=== PATIENT | female | born 1975 | race Two or more races ===

== ENCOUNTER 2023-04-05 01:51 | Emergency (ER) | payer OTHER, SELFPAY ==
[2023-04-05 02:00] VITALS: BP 139/94; PULSE 110; RESP 20; O2SAT 99; BMI 29.2
[2023-04-05] MEDS: Diphth,Pertus(ACell),Tet Adult 0.5 ML SYRINGE IM (02:29)
--- OUTSIDE RECORDS SUMMARY | 2023-04-05 02:29 | XMS_ITS | Continuity of Care Document ---
Author Name Unknown Organization [facility] Address [address] [place] [address]- Care Team Providers Care Lead Generator Name Role Phone Wicho Still NP Primary Care Physician Encounter [facility] Date(s): 10/14/22 - 11/13/22 [facility]/[place] [address]- [place] Allergies, Adverse Reactions, Alerts Substance Reaction Severity Status Latex Hives Active Immunizations Given and Recorded Vaccine Date Status Refusal Reason Hepatitis A-Hepatitis B Vaccine 01/07/21 Given Hepatitis A-Hepatitis B Vaccine 12/07/20 Given Measles/Mumps/Rubella Virus Vaccine 12/07/20 Given influenza virus vaccine, inactivated 1 09/10/16 Gi jae influenza virus vaccine, inactivated 2 10/23/15 Gi jae influenza virus vaccine, inactivated 3 09/15/11 Gi jae tetanus/diphtheria/pertussis, acel(Tdap) 4 01/26/13 Given 1Result Comment: [09/10/2016] ORDERED BY DR. ROUSSEAU 2Result Comment: [10/23/2015] ORDERED BY DR. LANDAVERDE 3Admin Note: VIS 06/17/2011GIVEN 4Admin Note: [facility] VIS 10/10/08 GIVEN Medications Aerochamber Aerochamber, See Instructions, # 1 each, Refills 0, Tot. Refills 0, Maintenance, To be used with MDI as directed, 04/17/21 10:23:00 EDT, Supply, 163, cm, 04/11/21 13:52:00 EDT, Height, 72.9, kg, 05/17/20 16:57:00 EDT, Dry Weight Start Date: 04/17/21 Status: Ordered Flonase 50 mcg/inh nasal spray 1 sprays, Nares, Both, 2 times a day, # 16 Gm, 0 Refills, Maintenance, 12/25/20 15:01:00 EST, [place], [facility]/pharmacy #[id number], Partial fill upon patient request if the prescription is for a schedule II opioid drug., 1 sprays Nares, Both 2 times a day, 163,... Start Date: 12/25/20 Status: Ordered melatonin 5 mg oral tablet See Instructions, PRN for insomnia, 1-2 tablets By Mouth Daily at bedtime 30 days, # 120 tablet, 1 Refills, Acute 10/14/23 15:00:00 EST, 10/13/22 14:59:00 EST, Tablet, [facility]/pharmacy #[id number], Partial fill upon patient request if the prescription is for a... Start Date: 10/13/22 Stop Date: 10/14/23 Status: Ordered miSOPROStol 200 mcg oral tablet 4 tablet = 800 mcg, By Mouth, Once, bolivar 4 tabletas buccal en 24 horas. puede repetir 24-48 horas despues si necesita., # 8 tablet, 0 Refills, Soft Stop, 10/20/22 14:35:00 EST, [facility]/pharmacy #[id number], 163, cm, 10/20/22 13:53:00 EST, Height, 79.9, kg, /... Start Date: 10/20/22 Status: Ordered naproxen 500 mg oral tablet 1 tablet = 500 mg, By Mouth, 2 times a day, for 10 days, # 20 tablet, 3 Refills, Acute 11/29/22 14:39:00 EST, 10/20/22 14:39:00 EST, Tablet, [facility]/pharmacy #[id number], 163, cm, 10/20/22 13:53:00 EST, Height, 79.9, kg, 10/20/22 13:53:00 EST, Dry Weight Start Date: 10/20/22 Stop Date: 11/29/22 Status: Ordered ohm Allergy Relief 10 mg oral tablet 1 tablet, By Mouth, Daily, # 30 tablet, 0 Refills, Maintenance, 01/18/21 15:54:00 EST, [facility], 163, cm, 12/25/20 11:18:00 EST, Height, 72.9, kg, 05/17/20 16:57:00 EDT, Dry Weight Start Date: 01/18/21 Status: Ordered Provera 10 mg oral tablet 10 mg, 1, tablet, By Mouth, Daily, # 10 tablet, Refills 0, Tot. Refills 0, Maintenance, 04/08/22 9:49:00 EDT, Route to Pharmacy Electronically, [facility]/pharmacy #[id number], Partial fill upon patient request if the prescription is for a schedule II opioid drug.... Start Date: 04/08/22 Stop Date: 04/18/22 Status: Ordered Symbicort 80mcg/4.5mcg Inhaler 2, puffs, Inhalation, 2 times a day, # 1 each, Refills 1, Tot. Refills 1, Maintenance, 05/07/22 9:12:00 EDT, Aerosol, Route to Pharmacy Electronically, [id number], [facility]/pharmacy #[id number], 163, cm, 04/08/22 9:49:00 EDT, Height, 72... Start Date: 05/07/22 Status: Ordered ZyrTEC 10 mg oral tablet 1 tablet = 10 mg, By Mouth, Daily, # 30 tablet, 0 Refills, Maintenance, 03/21/22 10:36:00 EDT, [place], [id number], Partial fill upon patient request if the prescription is for a schedule II opioid drug., 163, cm, 03/21/22 10:20:00 EDT, Height,... Start Date: 03/21/22 Status: Ordered Problem List Condition Confirmation Course Effective Dates Status [facility] atus Informant Uterus, bicornuate Confirmed Active Carpal tunnel syndrome on both sides Confirmed Active Kidney anomaly, congenital Confirmed Active Heart murmur Confirmed Active Obese class I Confirmed Active Social History Social History Type Response Smoking Status Never (less than 100 in lifetime); Exposure to Secondhand Smoke: No entered on: 04/08/22 Sex Patient Care team information Care Team Personnel Name: Wicho Still NP Position: S PCO Associate Professional Member Role: PCP Address: Address: [address] [place] [id number]- Care Team Related Persons Name: YANELI PEÑALOZA Address: [place] [address] Name: FENG PEÑALOZA Name: SEEMA ESPINOZA Address: home [address] [place] [id number] Name: KALI BIGGS Address: [place] [address]
--- OUTSIDE RECORDS SUMMARY | 2023-04-05 02:29 | XMS_ITS | Continuity of Care Document ---
Author Name Unknown Organization [facility] Address [address] [place] [address]- Care Team Providers Care Web Operations Manager Name Role Phone Not on Staff, PCP Primary Care Physician Unavail able [facility]counter [facility] Date(s): 03/19/20 - 04/18/20 [facility] [address] [place] [address]- [facility] Attending Physician: Alexis Sparks MD Allergies, Adverse Reactions, Alerts Substance Reaction Severity Status Latex Hives Active Immunizations Given and Recorded Vaccine Date Status Refusal Reason influenza virus vaccine, inactivated 1 09/10/16 Gi jae influenza virus vaccine, inactivated 2 10/23/15 Gi jae influenza virus vaccine, inactivated 3 09/15/11 Gi jae tetanus/diphtheria/pertussis, acel(Tdap) 4 01/26/13 Given 1[place] Comment: [09/10/2016] ORDERED BY DR. ROUSSEAU 2[place] Comment: [10/23/2015] ORDERED BY DR. LANDAVERDE 3Admin Note: VIS 06/17/2011GIVEN 4Admin Note: [facility] VIS 10/10/08 GIVEN Medications Anusol-HC 2.5% cream with applicator 1 application, Rectally, 2 times a day, to affected area. turkish., # 30 Gm, 3 Refills, Maintenance, Cream Start Date: 04/15/13 Status: Ordered ibuprofen 600 mg oral tablet 1 tablet = 600 mg, By Mouth, Every 6 hours, # 40 tablet, 0 Refills, Maintenance, 11/01/15 10:36:01,Tablet, 1 tablet By Mouth Every 6 hours,x10 days Start Date: 11/01/15 Stop Date: 11/11/15 Status: Ordered metroNIDAZOLE 0.75% topical gel 1 application, Topically, 2 times a day, # 45 Gm, 3 Refills, Maintenance, 12/20/15 5:06:06, Gel, PLease try if this formulation is covered instead of the 1%, 1 application Topically 2 times a day Start Date: 12/20/15 Status: Ordered oxymetazoline 0.05% nasal spray 2 sprays, Nares, Both, Daily, # 15 mL, 0 Refills, Maintenance, 01/01/16 14:16:43, [place], 2 sprays Nares, Both Daily,x30 days Start Date: 01/01/16 Stop Date: 01/31/16 Status: Ordered Valium 5 mg oral tablet 1 tablet = 5 mg, By Mouth, 3 times a day, PRN Pain , Moderate, # 12 tablet, 0 Refills, Maintenance,08/12/14 17:27:59, Tablet Start Date: 08/12/14 Status: Ordered Problem List Condition Effective Dates Status Health Status Inform ant Uterus, bicornuate(Confirmed) Active Carpal tunnel syndrome on eli th sides(Confirmed) Active External hemorrhoids(Confirmed) Active Contraceptive management(Confirmed) 1 02/17/14 Active Well woman exam with routine gynecological exam(Confirmed) Active 1nuvaring initiated 02/17/14 Social History Social History Type Response Smoking Status Never smoker; Tobacc o user in household: No entered on: 09/10/16 Sex
--- OUTSIDE RECORDS SUMMARY | 2023-04-05 02:29 | XMS_ITS | Continuity of Care Document ---
Author Name Unknown Organization [facility] Address [address] [place] [address]- Care Team Providers Care Vascular Technician Name Role Phone Donald NICK, Katia Pinon Primary Care Physician Encounter [facility] Date(s): 05/13/21 - 06/12/21 [facility]/[address] [address] Allergies, Adverse Reactions, Alerts Substance Reaction Severity [...] Dry Weight Start Date: 04/17/21 Status: Ordered Depakote ER 250 mg oral tablet, extended release 1 tablet = 250 mg, By Mouth, Daily, # 30 tablet, 1 Refills, Maintenance, 05/17/21 10:25:00 EDT, [facility]/pharmacy #[id number], Partial fill upon patient request if the prescription is for a schedule II opioid drug., 163, cm, 05/17/21 10:00:00 EDT, Height, 72.9,... Start Date: 05/17/21 Status: Ordered Flonase 50 mcg/inh nasal spray 1 sprays, Nares, Both, 2 times a day, # 16 Gm, 0 Refills, Maintenance, 12/25/20 15:01:00 EST, [place], [id number], Partial fill upon patient request if the prescription is for a schedule II opioid drug., 1 sprays Nares, Both 2 times a day, 163,... Start Date: 12/25/20 Status: Ordered ohm Allergy Relief 10 mg oral tablet 1 tablet, By Mouth, Daily, # 30 tablet, 0 Refills, Maintenance, 01/18/21 15:54:00 EST, [facility], 163, cm, 12/25/20 11:18:00 EST, Height, 72.9, kg, 05/17/20 16:57:00 EDT, Dry Weight Start Date: 01/18/21 Status: Ordered SUMAtriptan 50 mg oral tablet See Instructions, PLEASE SEE ATTACHED FOR DETAILED DIRECTIONS, # 9 tablet, 0 Refills, Soft Stop, [facility], 163, cm, 05/17/21 10:00:00 EDT, Height, 72.9, kg, 05/17/20 16:57:00 EDT, Dry Weight Start Date: 06/07/21 Status: Ordered Symbicort 80mcg/4.5mcg Inhaler 2, puffs, Inhalation, 2 times a day, # 1 each, Refills 11, Tot. Refills 11, Maintenance, 04/11/21 14:21:00 EDT, Aerosol, Route to Pharmacy Electronically, [id number], [facility]/pharmacy #[id number], 163, cm, 04/11/21 13:52:00 EDT, Height... Start Date: 5/20/21 Status: Ordered Problem List Condition Effective Dates Status Health Status Inform ant Uterus, bicornuate(Confirmed) Active Carpal tunnel syndrome on eli th sides(Confirmed) Active Kidney anomaly, congenital(Confirmed) Active Heart murmur(Confirmed) Active Social History Social History Type Response Smoking Status Never smoker; Tobacc o user in household: No entered on: 09/10/16 Sex
[2023-04-05] MEDS: Bacitracin Oint 0.9 GM PACKET 3 APPL TOPICAL (02:30)
[2023-04-05] MEDS: Lidocaine HCl 1 % MPF 5 ML VIAL 10 ML SUBCUT (02:30)
--- OUTSIDE RECORDS SUMMARY | 2023-04-05 02:30 | XMS_ITS | Continuity of Care Document ---
Author Name Unknown Organization [facility] Address Unknown Care Team Providers Care Public Health Aides Teacher Name Role Phone Donald NICK, Katia Pinon Primary Care Physician Encounter [facility] ACCT R [id number] Date(s): 06/18/21 - 07/18/21 [facility] Attending Physician: Daniela Stringer Admitting Physician: Daniela Stringer Referring Physician: AdmDaniela addison Allergies, Adverse Reactions, Alerts Substance Reaction Severity [...] day, # 16 Gm, 0 Refills, Maintenance, 02/02/21 15:01:00 EST, [place], [facility]/pharmacy #[id number], Partial fill upon patient request if the prescription is for a schedule II opioid drug., 1 sprays Nares, Both 2 times a day, 163,... Start Date: 12/25/20 Status: Ordered naproxen 500 mg oral tablet 1 tablet = 500 mg, By Mouth, 2 times a day, PRN for headache, with food., # 30 tablet, 1 Refills, Maintenance, 06/18/21 8:29:00 EDT, Tablet, [facility]/pharmacy #[id number], Partial fill upon patient request if the prescription is for a schedule II opioid drug., 1... Start Date: 06/18/21 Status: Ordered ohm Allergy Relief 10 mg oral tablet 1 tablet, By Mouth, Daily, # 30 tablet, 0 Refills, Maintenance, 01/18/21 15:54:00 EST, [facility], 163, cm, 12/25/20 11:18:00 EST, Height, 72.9, kg, 05/17/20 16:57:00 EDT, Dry Weight Start Date: 01/18/21 Status: Ordered Symbicort 80mcg/4.5mcg Inhaler 2, puffs, Inhalation, 2 times a day, # 1 each, Refills 11, Tot. Refills 11, Maintenance, 04/11/21 14:21:00 EDT, Aerosol, Route to Pharmacy Electronically, [id number], [facility]/pharmacy #[id number], 163, cm, 04/11/21 13:52:00 EDT, Height... Start Date: 04/11/21 Status: Ordered Problem List Condition Effective Dates Status Health Status Inform ant Uterus, bicornuate(Confirmed) Active Carpal tunnel syndrome on eli th sides(Confirmed) Active Kidney anomaly, congenital(Confirmed) Active Heart murmur(Confirmed) Active Social History Social History Type Response Smoking Status Never smoker; Tobacc o user in household: No entered on: 09/10/16 Sex
--- OUTSIDE RECORDS SUMMARY | 2023-04-05 02:30 | XMS_ITS | Continuity of Care Document ---
Author Name Unknown Organization [facility] Address [address] [place] [address]- Care Team Providers Care Coldfusion Name Role Phone Wicho Still NP Primary Care Physician [phone] Encounter [facility] Date(s): 11/12/22 - 12/12/22 [facility]/[place] [address]- [place] Allergies, Adverse Reactions, Alerts Substance Reaction [...] Gm, 0 Refills, Maintenance, 12/25/20 15:01:00 EST, [place], [facility]/pharmacy #[id number], Partial fill upon patient [...] 10/14/23 15:00:00 EST, 10/13/22 14:59:00 EST, [place], [facility]/pharmacy #[id number], Partial fill upon patient request if the prescription is for a... Start Date: 10/13/22 Stop Date: 10/14/23 Status: Ordered miSOPROStol 200 mcg oral tablet 4 tablet = 800 mcg, By Mouth, Once, bolivar 4 tabletas buccal en 24 horas. puede repetir 24-48 horas despues si necesita., # 8 tablet, 0 Refills, Soft Stop, 10/20/22 14:35:00 EST, [facility]/pharmacy #[id number], 163, cm, 10/20/22 13:53:00 EST, Height, 79.9, kg, ... Start Date: 10/20/22 Status: Ordered ohm Allergy Relief 10 mg oral tablet 1 tablet, By Mouth, Daily, # 30 tablet, 0 Refills, Maintenance, 01/18/21 15:54:00 EST, [facility]ORE [facility], 163, cm, 12/25/20 11:18:00 EST, Height, 72.9, kg, 05/17/20 16:57:00 EDT, Dry Weight Start Date: 01/18/21 Status: Ordered Provera 10 mg oral tablet 10 mg, 1, tablet, By Mouth, Daily, # 10 tablet, Refills 0, Tot. Refills 0, Maintenance, 04/08/22 9:49:00 EDT, Route to Pharmacy Electronically, [facility]/pharmacy #[id number], Partial fill upon patient request if the prescription is for a schedule II opioid drug.... Start Date: 04/08/22 Stop Date: 04/18/22 Status: Ordered Symbicort 80mcg/4.5mcg Inhaler 2, puffs, Inhalation, 2 times a day, # 1 each, Refills 1, Tot. Refills 1, Maintenance, 05/07/22 9:12:00 EDT, Aerosol, Route to Pharmacy Electronically, [id number], [facility]/pharmacy #[id number], 163, cm, 04/08/22 9:49:00 EDT, Height, 72... Start Date: 05/07/22 Status: Ordered ZyrTEC 10 mg oral tablet 1 tablet = 10 mg, By Mouth, Daily, # 30 tablet, 0 Refills, Maintenance, 03/21/22 10:36:00 EDT, Tablet, [facility]/pharmacy #[id number], Partial fill upon patient request if the prescription is for a schedule II opioid drug., 163, cm, 03/21/22 10:20:00 EDT, Height,... Start Date: 03/21/22 Status: Ordered Problem List Condition Confirmation Course Effective Dates Status Health St atus Informant Uterus, bicornuate Confirmed Active Carpal tunnel syndrome on both sides Confirmed Active Kidney anomaly, congenital 1 Confirmed Active Heart murmur Confirmed Active Obese class I Confirmed Active Major depression, recurrent, chronic Confirmed Active 1retroperitoneal u/s from 11/12/22 showed Unremarkable solitary RIGHT kidney with compensatory hypertrophy. No focal lesion or evidence of calculus. No hydronephrosis... Absent LEFT kidney. Social History Social History Type Response Smoking Status Never (less than 100 in lifetime); Exposure to Secondhand Smoke: No entered on: 04/08/22 Sex Patient Care team information Care Team Personnel Name: Wicho Still NP Position: [facility] PCO Associate Professional Member Role: PCP Address: Address: [address] [place] [address]- Care Team Related Persons Name: YANELI PEÑALOZA Address: [place] [address] Name: FENG PEÑALOZA Name: SEEMA ESPINOZA Address: home [address] [place] [id number] Name: KALI BIGGS Address: [place] [address]
--- OUTSIDE RECORDS SUMMARY | 2023-04-05 02:30 | XMS_ITS | Continuity of Care Document ---
Author Name Unknown Organization [facility] Address [address] [place] [address]- Care Team Providers Care Gate Guard Name Role Phone Katia Bennett MD Primary Care Physician Encounter [facility] Date(s): 04/16/21 - 04/16/[address] [address]- Discharge Disposition: A-D/C Walkout Attending Physician: Not on Staff, Attending MD Admitting Physician: Not on Staff, Admitting MD Referring Physician: Not on Staff, Referring MD Allergies, Adverse Reactions, Alerts Substance Reaction [...] Note: [facility] VIS 10/10/08 GIVEN Medications Flonase 50 mcg/inh nasal spray 1 sprays, Nares, Both, 2 times a day, # 16 Gm, 0 Refills, Maintenance, 12/25/20 15:01:00 EST, [place], [id number], Partial fill upon patient request if the prescription is for a schedule II opioid drug., 1 sprays Nares, Both 2 times a day, 163,... Start Date: 12/25/20 Status: Ordered ohm Allergy Relief 10 mg oral tablet 1 tablet, By Mouth, Daily, # 30 tablet, 0 Refills, Maintenance, 01/18/21 15:54:00 EST, [facility], 163, cm, 12/25/20 11:18:00 EST, Height, 72.9, kg, 05/17/20 16:57:00 EDT, Dry Weight Start Date: 01/18/21 Status: Ordered Symbicort 80mcg/4.5mcg Inhaler 2, puffs, Inhalation, 2 times a day, # 1 each, Refills 11, Tot. Refills 11, Maintenance, 04/11/21 14:21:00 EDT, Aerosol, Route to Pharmacy Electronically, [id number], [facility]/pharmacy #[id number], 163, cm, 04/11/21 13:52:00 EDT, Height... Start Date: 04/11/21 Status: Ordered Problem List Condition Effective Dates Status Health Status Inform ant Uterus, bicornuate(Confirmed) Active Carpal tunnel syndrome on eli th sides(Confirmed) Active Kidney anomaly, congenital(Confirmed) Active Heart murmur(Confirmed) Active Vital Signs Most recent to oldest [Reference Range]: 1 2 3 Oxygen Saturation [94-100 %] 100 % (04/16/21 4:25 PM) 100 % (04/16/21 11:24 AM) 100 % (04/16/21 11:15 AM) Pulse Rate [55-90 bpm] 69 bpm (04/16/21 4:25 PM) 69 bpm (04/16/21 11:24 AM) 80 bpm (04/16/21 11:15 AM) Blood Pressure [90-138/55-84 mm Hg] 101/80mm Hg (04/16/21 4:25 PM) 126/83mm Hg (04/16/21 11:24 AM) Respiratory Rate [16-30 br/min] 16 br/min (04/16/21 4:25 PM) 18 br/min (04/16/21 11:24 AM) 18 br/min (04/16/21 11:15 AM) Temperature [96.8-100.4 DegF] 98.5 DegF (04/16/21 11:24 AM) Mode of Delivery (Oxygen) Room air (04/16/21 4:25 PM) Room air (04/16/21 11:24 AM) Blood pressure sites Arm, left (04/16/21 4:25 PM) Arm, right (04/16/21 11:24 AM) Temperature Route Oral (04/16/21 4:25 PM) Oral (04/16/21 11:24 AM) Social History Social History Type Response Smoking Status Never smoker; Tobacc o user in household: No entered on: 09/10/16 Sex
--- OUTSIDE RECORDS SUMMARY | 2023-04-05 02:30 | XMS_ITS | Continuity of Care Document ---
Author Name Unknown Organization [facility] Address [address] [place] [address]- Care Team Providers Care Tax Services Specialist Name Role Phone Donald NICK, Katia Pinon Primary Care Physician [place] [facility] [place] 04/16/21 - 05/16/21 [facility] [address] [place] [address]- Allergies, Adverse Reactions, Alerts Substance Reaction Severity [...] Gm, 0 Refills, Maintenance, 12/25/20 15:01:00 EST, [place], [facility]/pharmacy #[id number], Partial fill upon patient request if the prescription is for a schedule II opioid drug., 1 sprays Nares, Both 2 times a day, 163,... Start Date: 12/25/20 Status: Ordered ohm Allergy Relief 10 mg oral tablet 1 tablet, By Mouth, Daily, # 30 tablet, 0 Refills, Maintenance, 01/18/21 15:54:00 EST, [facility], 163, cm, 12/25/20 11:18:00 EST, Height, 72.9, kg, 05/17/20 16:57:00 EDT, Dry Weight Start Date: 01/18/21 Status: Ordered SUMAtriptan 50 mg oral tablet 1 tablet = 50 mg, By Mouth, Daily, PRN for migraine headache, for 30 days, may repeat dose after 2 hours up to a maximum of 2, # 9 tablet, 0 Refills, Acute 06/12/21 17:49:00 EDT, 05/13/21 17:49:00 EDT, Tablet, [facility]/pharmacy #[id number], Partial fill upon pat... Start Date: 05/13/21 Stop Date: 06/12/21 Status: Ordered Symbicort 80mcg/4.5mcg Inhaler 2, puffs, Inhalation, 2 times a day, # 1 each, Refills 11, Tot. Refills 11, Maintenance, 04/11/21 14:21:00 EDT, Aerosol, Route to Pharmacy Electronically, [id number], [facility]/pharmacy #[id number], 163, cm, 04/11/21 13:52:00 EDT, [...]
--- OUTSIDE RECORDS SUMMARY | 2023-04-05 02:30 | XMS_ITS | Continuity of Care Document ---
Author Name Unknown Organization [facility] Address Unknown Care Team Providers Care Casting Machine Service Operator Name Role Phone Donald NICK, Katia Pinon Primary Care Physician Encounter [facility] ACCT R [id number] Date(s): 01/02/22 - 02/01/22 [facility] Attending Physician: Daniela Stringer Admitting Physician: Daniela [...] Gm, 0 Refills, Maintenance, 02/02/21 15:01:00 EST, [place], [id number], Partial fill upon patient request if the prescription is for a schedule II opioid drug., 1 sprays Nares, Both 2 times a day, 163,... Start Date: 12/25/20 Status: Ordered naproxen 500 mg oral tablet 1 tablet = 500 mg, By Mouth, 2 times a day, PRN for headache, with food., # 30 tablet, 1 Refills, Maintenance, 06/18/21 8:29:00 EDT, [place], [id number], Partial fill upon patient request if the prescription is for a schedule II opioid drug., 1... Start Date: 06/18/21 Status: Ordered ohm Allergy Relief 10 mg oral tablet 1 tablet, By Mouth, Daily, # 30 tablet, 0 Refills, Maintenance, 01/18/21 15:54:00 EST, [facility], 163, cm, 12/25/20 11:18:00 EST, Height, 72.9, kg, 05/17/20 16:57:00 EDT, Dry Weight Start Date: 01/18/21 Status: Ordered Symbicort 80mcg/4.5mcg Inhaler 2, puffs, Inhalation, 2 times a day, # 1 each, Refills 11, Tot. Refills 11, Maintenance, 04/11/21 14:21:00 EDT, Aerosol, Route to Pharmacy Electronically, [id number], [facility]/pharmacy #[id number], 163, cm, 04/11/21 13:52:00 EDT, Height... Start Date: 04/11/21 Status: Ordered Problem List Condition Effective Dates Status Health Status Inform ant Uterus, bicornuate(Confirmed) Active Carpal tunnel syndrome on eli th sides(Confirmed) Active Kidney anomaly, congenital(Confirmed) Active Heart murmur(Confirmed) Active Obese class I(Confirmed) Active Social History Social History Type Response Smoking Status Never smoker; Tobacc o user in household: No entered on: 09/10/16 Sex
--- OUTSIDE RECORDS SUMMARY | 2023-04-05 02:30 | XMS_ITS | Continuity of Care Document ---
Author Name Unknown Organization [facility] Address Unknown Care Team Providers Care Item Repair Manager Name Role Phone Donald NICK, Katia Pinon Primary Care Physician Encounter [facility] Date(s): 03/08/21 - 07/13/21 [facility] Attending Physician: Not on Staff, Attending MD Admitting Physician: Ashli Zarco MD Allergies, Adverse Reactions, Alerts Substance Reaction [...] 1Result Comment: [09/10/2016] ORDERED BY DR. ROUSSEAU 2Resgeorgiana [...] Gm, 0 Refills, Maintenance, 12/25/20 15:01:00 EST, [place], [id number], Partial fill upon patient request [...] Refills, Maintenance, 01/18/21 15:54:00 EST, [facility], 163, cm, 12/25/20 11:18:00 EST, Height, 72.9, kg, 05/17/20 16:57:00 EDT, Dry Weight Start Date: 01/18/21 Status: Ordered Symbicort 80mcg/4.5mcg Inhaler 2, puffs, Inhalation, 2 times a day, # 1 each, Refills 11, Tot. Refills 11, Maintenance, 04/11/21 14:21:00 EDT, Aerosol, Route to Pharmacy Electronically, [id number], [facility]/pharmacy #[id number], 163, cm, 04/11/21 13:52:00 EDT, Height... [...]
--- OUTSIDE RECORDS SUMMARY | 2023-04-05 02:30 | XMS_ITS | Continuity of Care Document ---
Author Name Unknown Organization [facility] Address Unknown Care Team Providers Care Shorer Name Role Phone Luna BOBO, Alea Alamo Primary Care Physici an Encounter [facility] [place] Date(s): 04/09/22 - 05/09/22 [facility] Allergies, Adverse Reactions, Alerts Substance Reaction Severity [...] Gi jae tetanus/diphtheria/pertussis, acel(Tdap) 4 01/26/13 Given 1Rnicolás Comment: [09/10/2016] ORDERED BY DR. ROUSSEAU 2Rnicolás Comment: [10/23/2015] ORDERED BY DR. LANDAVERDE 3Admin [...] Gm, 0 Refills, Maintenance, 12/25/20 15:01:00 EST, [place], [id number], Partial fill upon patient request if the prescription is for a schedule II opioid drug., 1 sprays Nares, Both 2 times a day, 163,... Start Date: 12/25/20 Status: Ordered naproxen 500 mg oral tablet 1 tablet = 500 mg, By Mouth, 2 times a day, PRN for headache, with food., # 30 tablet, 1 Refills, Maintenance, 06/18/21 8:29:00 EDT, Tablet, [facility]/pharmacy #[id number], Partial fill upon patient request if the prescription is for a schedule II opioid drug., 1... Start Date: 06/18/21 Status: Ordered ohm Allergy Relief 10 mg oral tablet 1 tablet, By Mouth, Daily, # 30 tablet, 0 Refills, Maintenance, 01/18/21 15:54:00 EST, [facility], 163, cm, 12/25/20 11:18:00 EST, Height, 72.9, kg, 05/17/20 16:57:00 EDT, Dry Weight Start Date: 01/18/21 Status: Ordered Provera 10 mg oral tablet 10 mg, 1, tablet, By Mouth, Daily, # 10 tablet, Refills 0, Tot. Refills 0, Maintenance, 04/08/22 9:49:00 EDT, Route to Pharmacy Electronically, [id number], Partial fill upon patient request if the prescription is for a schedule II opioid drug.... Start Date: 04/08/22 Stop Date: 04/18/22 Status: Ordered Symbicort 80mcg/4.5mcg Inhaler 2, puffs, Inhalation, 2 times a day, # 1 each, Refills 1, Tot. Refills 1, Maintenance, 05/07/22 9:12:00 EDT, Aerosol, Route to Pharmacy Electronically, [id number], [id number], 163, cm, 04/08/22 9:49:00 EDT, Height, [...] Date: 03/21/22 Status: Ordered Problem List Condition Effective Dates [...]
--- OUTSIDE RECORDS SUMMARY | 2023-04-05 02:30 | XMS_ITS | Continuity of Care Document ---
Author Name Unknown Organization [facility] Address Unknown Care Team Providers Care Data Miner Name Role Phone Luna BOBO, Alea Alamo Primary Care Physici an Encounter [facility] [place] Date(s): 05/22/22 - 06/21/22 [facility] Allergies, Adverse Reactions, Alerts Substance Reaction Severity [...] Gm, 0 Refills, Maintenance, 12/25/20 15:01:00 EST, [place], [id number], Partial fill upon patient request if the prescription is for a schedule II opioid drug., 1 sprays Nares, Both 2 times a day, 163,... Start Date: 12/25/20 Status: Ordered naproxen 500 mg oral tablet 1 tablet = 500 mg, By Mouth, 2 times a day, PRN for headache, with food., # 30 tablet, 1 Refills, Maintenance, 06/18/21 8:29:00 EDT, Tablet, [facility]/pharmacy #[id number], Partial fill upon patient request if the prescription is for a schedule II opioid drug., 1... Start Date: 06/18/21 Status: Ordered ohm Allergy Relief 10 mg oral tablet 1 tablet, By Mouth, Daily, # 30 tablet, 0 Refills, Maintenance, 01/18/21 15:54:00 EST, [facility], 163, cm, 12/25/20 11:18:00 EST, Height, 72.9, [...] 9:12:00 EDT, Aerosol, Route to Pharmacy Electronically, [id number], [id number], 163, cm, 04/08/22 9:49:00 EDT, [...]
--- OUTSIDE RECORDS SUMMARY | 2023-04-05 02:30 | XMS_ITS | Continuity of Care Document ---
Author Name Unknown Organization [facility] Address [address] [place] [address]- Care Team Providers Care Gaming Worker Name Role Phone Donald NICK, Katia Pinon Primary Care Physician Encounter [facility] [place] Date(s): 04/12/21 - 05/17/21 [facility] [address] [place] [address]- Attending Physician: Mann Venegas MD Admitting Physician: Mann Venegas MD Allergies, Adverse Reactions, Alerts Substance Reaction [...] tablet, 1 Refills, Maintenance, 05/17/21 10:25:00 EDT, [facility]/pharmacy #[id number], Partial fill upon patient request if the prescription is for a schedule II opioid drug., 163, cm, 05/17/21 10:00:00 EDT, Height, 72.9,... Start Date: 05/17/21 Status: Ordered Flonase 50 mcg/inh nasal spray 1 sprays, Nares, Both, 2 times a day, # 16 Gm, 0 Refills, Maintenance, 12/25/20 15:01:00 EST, [place], [facility]/pharmacy #0488, Partial fill upon patient request if the prescription is for a schedule II opioid drug., 1 sprays Nares, Both 2 times a day, 163,... Start Date: 12/25/20 Status: Ordered ohm Allergy Relief 10 mg oral tablet 1 tablet, By Mouth, Daily, # 30 tablet, 0 Refills, Maintenance, 01/18/21 15:54:00 EST, [facility], 163, cm, 12/25/20 11:18:00 EST, Height, 72.9, kg, 05/17/20 16:57:00 EDT, Dry Weight Start Date: 01/18/21 Status: Ordered SUMAtriptan 50 mg oral tablet 1 tablet = 50 mg, By Mouth, Daily, PRN for migraine headache, for 30 days, may repeat dose after 2 hours up to a maximum of 2, # 9 tablet, 0 Refills, Acute 06/12/21 17:49:00 EDT, 05/13/21 17:49:00 EDT, Tablet, [facility]/pharmacy #[id number], Partial fill upon pat... Start Date: 05/13/21 Stop Date: 06/12/21 Status: Ordered Symbicort 80mcg/4.5mcg Inhaler 2, puffs, Inhalation, 2 times a day, # 1 each, Refills 11, Tot. Refills 11, Maintenance, 04/11/21 14:21:00 EDT, Aerosol, Route to Pharmacy Electronically, [id number], [facility]/pharmacy #[id number], 163, cm, 04/11/21 13:52:00 EDT, Height... [...]
--- OUTSIDE RECORDS SUMMARY | 2023-04-05 02:30 | XMS_ITS | Continuity of Care Document ---
Author Name Unknown Organization [facility] Address [address] [place] [address]- Care Team Providers Care Personal Protection Specialist Name Role Phone Donald NICK, Katia Pinon Primary Care Physician En[place] [facility] [place] Date(s): 05/22/21 - 06/21/21 [facility] [address] [place] [address]- Allergies, Adverse Reactions, Alerts Substance Reaction Severity [...] Dry Weight Start Date: 04/17/21 Status: Ordered cyclobenzaprine 10 mg oral tablet 10 mg, 1, tablet, By Mouth, Daily at bedtime, PRN, for 10 days, may cause drowsiness so take in evening or bedtime, # 10 tablet, Refills 0, Tot. Refills 0, Acute 06/28/21 8:30:00 EDT, for neck muscletightness and headache, 06/18/21 8:30:00 EDT, Route... Start Date: 06/18/21 Stop Date: 06/28/21 Status: Ordered Flonase 50 mcg/inh nasal spray 1 sprays, Nares, Both, 2 times a day, # 16 Gm, 0 Refills, Maintenance, 12/25/20 15:01:00 EST, [place], [facility]/pharmacy #[id number], Partial fill upon patient request if the prescription is for a schedule II opioid drug., 1 sprays Nares, Both 2 times a day, 163,... Start Date: 12/25/20 Status: Ordered naproxen 500 mg oral tablet 1 tablet = 500 mg, By Mouth, 2 times a day, PRN for headache, with food., # 30 tablet, 1 Refills, Maintenance, 06/18/21 8:29:00 EDT, Table[place], [facility]/pharmacy #0488, Partial fill upon patient request if the prescription is for a schedule II opioid drug., 1... Start Date: 06/18/21 Status: Ordered ohm Allergy Relief 10 mg oral tablet 1 tablet, By Mouth, Daily, # 30 tablet, 0 Refills, Maintenance, 01/18/21 15:54:00 EST, [facility], 163, cm, 12/25/20 11:18:00 EST, Height, 72.9, kg, 05/17/20 16:57:00 EDT, Dry Weight Start Date: 01/18/21 Status: Ordered Symbicort 80mcg/4.5mcg Inhaler 2, puffs, Inhalation, 2 times a day, # 1 each, Refills 11, Tot. Refills 11, Maintenance, 04/11/21 14:21:00 EDT, Aerosol, Route to Pharmacy Electronically, [id number], [facility]/pharmacy #[id number], 163, cm, 04/11/21 13:52:00 EDT, Height... [...]
--- OUTSIDE RECORDS SUMMARY | 2023-04-05 02:30 | XMS_ITS | Continuity of Care Document ---
Author Name Unknown Organization [facility] Address [address] [place] [address]- Care Team Providers Care Assembler Semiconductor Name Role Phone Wicho Still NP Primary Care Physician [phone] Encounter [facility] Date(s): 10/14/22 - 11/13/22 [facility] [address]- [place] Allergies, Adverse Reactions, Alerts Substance Reaction [...] Gm, 0 Refills, Maintenance, 12/25/20 15:01:00 EST, [place], [facility]/pharmacy #[id number], Partial fill upon patient request if the prescription is for a schedule II opioid drug., 1 sprays Nares, Both 2 times a day, 163,... Start Date: 12/25/20 Status: Ordered melatonin 5 mg oral tablet See Instructions, PRN for insomnia, 1-2 tablets By Mouth Daily at bedtime 30 days, # 120 tablet, 1 Refills, Acute 10/14/23 15:00:00 EST, 10/13/22 14:59:00 EST, Tablet, [facility]/pharmacy #[id number], Partial fill upon patient request if the prescription is for a... Start Date: 10/13/22 Stop Date: 10/14/23 Status: Ordered miSOPROStol 200 mcg oral tablet 4 tablet = 800 mcg, By Mouth, Once, bolivar 4 tabletas buccal en 24 horas. puede repetir 24-48 horas despues si necesita., # 8 tablet, 0 Refills, Soft Stop, 10/20/22 14:35:00 EST, [facility]/pharmacy #[id number], 163, cm, 10/20/22 13:53:00 EST, Height, 79.9, kg, /... Start Date: 10/20/22 Status: Ordered naproxen 500 mg oral tablet 1 tablet = 500 mg, By Mouth, 2 times a day, for 10 days, # 20 tablet, 3 Refills, Acute 11/29/22 14:39:00 EST, 10/20/22 14:39:00 EST, Tablet, [facility]/pharmacy #[id number], 163, cm, 10/20/22 13:53:00 EST, Height, 79.9, kg, 10/20/22 13:53:00 EST, Dry Weight Start Date: 10/20/22 Stop Date: 11/29/22 Status: Ordered ohm Allergy Relief 10 mg oral tablet 1 tablet, By Mouth, Daily, # 30 tablet, 0 Refills, Maintenance, 01/18/21 15:54:00 EST, [facility], 163, cm, 12/25/20 11:18:00 EST, Height, 72.9, kg, 05/17/20 16:57:00 EDT, Dry Weight Start Date: 01/18/21 Status: Ordered Provera 10 mg oral tablet 10 mg, 1, tablet, By Mouth, Daily, # 10 tablet, Refills 0, Tot. Refills 0, Maintenance, 04/08/22 9:49:00 EDT, Route to Pharmacy Electronically, [facility]/pharmacy #[id number], Partial fill upon patient request if the prescription is for a schedule II opioid drug.... Start Date: 04/08/22 Stop Date: 04/18/22 Status: Ordered Symbicort 80mcg/4.5mcg Inhaler 2, puffs, Inhalation, 2 times a day, # 1 each, Refills 1, Tot. Refills 1, Maintenance, 05/07/22 9:12:00 EDT, Aerosol, Route to Pharmacy Electronically, [id number], [facility]/pharmacy #[id number], 163, cm, 04/08/22 9:49:00 EDT, Height, [...] List Condition Confirmation Course Effective Dates Status [facility] atus Informant Uterus, bicornuate Confirmed Active Carpal [...] Associate Professional Member Role: PCP Address: Address: [address] [place] [address]- Care Team Related Persons Name: YANELI PEÑALOZA Address: [place] [address] Name: FENG PEÑALOZA Name: SEEMA ESPINOZA Address: home [address] [place] [address] Name: KALI BIGGS Address: [place] [address]
--- OUTSIDE RECORDS SUMMARY | 2023-04-05 02:30 | XMS_ITS | Continuity of Care Document ---
Author Name Unknown Organization [facility] Address [address] [place] [address]- Care Team Providers Care Office Services Manager Name Role Phone Donald NICK, Katia Pinon Primary Care Physician ( [phone] Encounter [facility] [place] Date(s): 03/21/22 - 04/20/22 [facility] [address], [place] [address] Attending Physician: Admtr, Ar8 Admitting Physician: Admtr, Ar8 Referring Physician: Admtr, Ar8 Allergies, Adverse Reactions, Alerts Substance Reaction Severity [...] Gm, 0 Refills, Maintenance, 12/25/20 15:01:00 EST, [place], [facility]/pharmacy #[id number], Partial fill upon [...] tablet, 0 Refills, Maintenance, 01/18/21 15:54:00 EST, [facility] ST[facility] 304[facility], 163, cm, 12/25/20 11:18:00 EST, Height, 72.9, kg, 05/17/20 16:57:00 EDT, Dry Weight Start Date: 01/18/21 Status: Ordered Provera 10 mg oral tablet 10 mg, 1, tablet, By Mouth, Daily, # 10 tablet, Refills 0, Tot. Refills 0, Maintenance, 04/08/22 9:49:00 EDT, Route to Pharmacy Electronically, [facility]/pharmacy #[id number], Partial fill upon patient request if the prescription is for a schedule II opioid drug.... Start Date: 04/08/22 Stop Date: 04/18/22 Status: Ordered Symbicort 80mcg/4.5mcg Inhaler 2, puffs, Inhalation, 2 times a day, # 1 each, Refills 11, Tot. Refills 11, Maintenance, 04/11/21 14:21:00 EDT, Aerosol, Route to Pharmacy Electronically, [id number], [facility]/pharmacy #0488, 163, cm, 04/11/21 13:52:00 EDT, Height... Start Date: 04/11/21 Status: Ordered ZyrTEC 10 mg oral tablet 1 tablet = 10 mg, By Mouth, Daily, # 30 tablet, 0 Refills, Maintenance, 03/21/22 10:36:00 EDT, Tablet, [facility]/pharmacy #[id number], Partial fill upon patient request if the [...]
--- OUTSIDE RECORDS SUMMARY | 2023-04-05 02:30 | XMS_ITS | Continuity of Care Document ---
Author Name Unknown Organization [facility] Address [address] [place] [address]- Care Team Providers Care Surface Supervisor Name Role Phone Wicho Still NP Primary Care Physician Encounter [facility] [place] Date(s): 01/20/23 - 02/19/23 [facility] [address]- [place] Allergies, Adverse Reactions, Alerts Substance Reaction [...] day, # 16 Gm, 0 Refills, Maintenance, 02/06/23 14:49:00 EDT, [place], [facility], Partial fill upon patient request if the prescription is for a schedule II opioid drug., 1 sprays Nares, Both 2 times a day, 163,... Start Date: 02/06/23 Status: Ordered melatonin 1 mg oral tablet 1 tablet = 1 mg, By Mouth, Daily at bedtime, PRN for insomnia, for 90 days, # 90 tablet, 1 Refills,Acute 08/05/23 14:55:00 EDT, 02/06/23 14:55:00 EDT, [place], [facility], Partial fill upon patient request if the prescription is for a schedule... Start Date: 02/06/23 Stop Date: 08/05/23 Status: Ordered melatonin 5 mg oral tablet See Instructions, PRN for insomnia, 1-2 tablets By Mouth Daily at bedtime 30 days, # 120 tablet, 1 Refills, Acute 10/14/23 15:00:00 EST, 10/13/22 14:59:00 EST, [place], [id number], Partial fill upon patient request if the prescription is for a... Start Date: 10/13/22 Stop Date: 10/14/23 Status: Ordered Plan B One-Step 1.5 mg oral tablet 1.5 mg, 1, tablet, By Mouth, Once, # 1 tablet, Refills 4, Tot. Refills 4, Soft Stop, 01/22/23 9:40:00 EST, Route to Pharmacy Electronically, [id number], Partial fill upon patient request if the prescription is for a schedule II opioid drug., 1... Start Date: 01/22/23 Status: Ordered Symbicort 80mcg/4.5mcg Inhaler 2, puffs, Inhalation, 2 times a day, # 1 each, Refills 1, Tot. Refills 1, Maintenance, 05/07/22 9:12:00 EDT, Aerosol, Route to Pharmacy Electronically, [id number], [facility], 163, cm, 04/08/22 9:49:00 EDT, Height, 72... Start Date: 05/07/22 Status: Ordered ZyrTEC 10 mg oral tablet 1 tablet = 10 mg, By Mouth, Daily, # 30 tablet, 0 Refills, Maintenance, 02/06/23 14:49:00 EDT, Tablet, [facility]/pharmacy #[id number], Partial fill upon patient request if the prescription is for a schedule II opioid drug., 163, cm, 02/06/23 14:31:00 EDT, Height,... Start Date: 02/06/23 Status: Ordered Problem List Condition Confirmation Course Effective Dates Status Health St atus Informant Asthma Confirmed Active Uterus, bicornuate Confirmed Active Carpal tunnel syndrome on both sides Confirmed Active Kidney anomaly, congenital 1 Confirmed Active Heart murmur Confirmed Active Major depression, recurrent, chronic Confirmed Active 1retroperitoneal u/s from 11/12/22 showed Unremarkable solitary RIGHT kidney with compensatory hypertrophy. No focal lesion or evidence of calculus. No hydronephrosis... Absent LEFT kidney. Social History Social History Type Response Smoking Status Never (less than 100 in lifetime) entered on: 02/06/23 Sex Patient Care team information Care Team Personnel Name: Wicho Still NP Position: [facility] PCO Associate Professional Member Role: PCP Address: Address: [address] [place] [address]- Care Team Related Persons Name: YANELI PEÑALOZA Address: [place] [address] Name: FENG PEÑALOZA Name: SEEMA ESPINOZA Address: home [address] [place] [id number] Name: KALI BIGGS Address: [place] [address]
--- OUTSIDE RECORDS SUMMARY | 2023-04-05 02:30 | XMS_ITS | Continuity of Care Document ---
Author Name Unknown Organization [facility] Address Unknown Care Team Providers Care Memorial Designer Name Role Phone Luna BOBO, Alea Alamo Primary Care Physici an Encounter [facility] [place] Date(s): 04/08/22 - 05/08/22 [facility] Allergies, Adverse Reactions, Alerts Substance Reaction [...] 1Resgeorgiana Comment: [09/10/2016] ORDERED BY DR. ROUSSEAU 2Rnicolás [...] Gm, 0 Refills, Maintenance, 12/25/20 15:01:00 EST, [place], [facility], Partial fill upon patient request if the prescription is for a schedule II opioid drug., 1 sprays Nares, Both 2 times a day, 163,... Start Date: 12/25/20 Status: Ordered naproxen 500 mg oral tablet 1 tablet = 500 mg, By Mouth, 2 times a day, PRN for headache, with food., # 30 tablet, 1 Refills, Maintenance, 06/18/21 8:29:00 EDT, Tablet, [facility]/pharmacy #0488, Partial fill upon patient request if the prescription is for a schedule II opioid drug., 1... Start Date: 06/18/21 Status: Ordered ohm Allergy Relief 10 mg oral tablet 1 tablet, By Mouth, Daily, # 30 tablet, 0 Refills, Maintenance, 01/18/21 15:54:00 EST, [facility], 163, cm, 12/25/20 11:18:00 EST, Height, 72.9, [...] 9:12:00 EDT, Aerosol, Route to Pharmacy Electronically, [id number], [id number], 163, cm, 04/08/22 9:49:00 EDT, [...]
--- OUTSIDE RECORDS SUMMARY | 2023-04-05 02:30 | XMS_ITS | Continuity of Care Document ---
Author Name Unknown Organization [facility] Address [address] [place] [address]- Care Team Providers Care Laborer [employer] Name Role Phone Donald NICK, Katia Pinon Primary Care Physician Encounter [facility] Date(s): 12/18/20 - 01/17/21 [facility] [address] [place] [address]- Allergies, Adverse Reactions, Alerts Substance Reaction Severity [...] Gm, 0 Refills, Maintenance, 12/25/20 15:01:00 EST, [place], [facility], Partial fill upon patient request if the prescription is for a schedule II opioid drug., 1 sprays Nares, Both 2 times a day, 163,... Start Date: 12/25/20 Status: Ordered loratadine 10 mg oral tablet 10 mg, 1, tablet, By Mouth, Daily, # 30 tablet, Refills 0, Tot. Refills 0, Maintenance, 12/25/20 15:01:00 EST, Route to Pharmacy Electronically, [facility]/pharmacy #5757, Partial fill upon patient request if the prescription is for a schedule II opioid drug... Start Date: 12/25/20 Status: Ordered Problem List Condition Effective Dates Status Health Status Inform ant Uterus, bicornuate(Confirmed) Active Carpal tunnel syndrome on eli th sides(Confirmed) Active Kidney anomaly, congenital(Confirmed) Active Heart murmur(Confirmed) Active Social History Social History Type Response Smoking Status Never smoker; Tobacc o user in household: No entered on: 09/10/16 Sex
--- OUTSIDE RECORDS SUMMARY | 2023-04-05 02:30 | XMS_ITS | Continuity of Care Document ---
Author Name Unknown Organization [facility] Address [address] [place] [address]- Care Team Providers Care Housing Director Name Role Phone Donald NICK, Katia Pinon Primary Care Physician ( [phone] Encounter [facility] [place] Date(s): 10/11/20 - 11/10/20 [facility] [address], [place] [address] Attending Physician: AdmDaniela addison Admitting Physician: AdmtrDaniela Referring Physician: Admtr, Ar8 Allergies, Adverse Reactions, [...] 4Admin Note: [facility] VIS 10/10/08 GIVEN Problem List Condition Effective Dates Status Health Status Inform ant Uterus, bicornuate(Confirmed) Active Carpal tunnel syndrome on eli th sides(Confirmed) Active Kidney anomaly, congenital(Confirmed) Active Heart murmur(Confirmed) Active Social History Social History Type Response Smoking Status Never smoker; Tobacc o user in household: No entered on: 09/10/16 Sex
--- OUTSIDE RECORDS SUMMARY | 2023-04-05 02:30 | XMS_ITS | Continuity of Care Document ---
Author Name Unknown Organization [facility] Address [address] [place] [address]- Care Team Providers Care Reports Analysis Manager Name Role Phone Wicho Still NP Primary Care Physician [place] [facility] [place] 10/03/22 - 11/27/22 [facility]/[place] [address]- Attending Physician: Not on Staff, Attending MD Allergies, Adverse Reactions, Alerts Substance Reaction [...] Gm, 0 Refills, Maintenance, 12/25/20 15:01:00 EST, [place], [facility]/pharmacy #[id number], Partial fill upon [...] 10/14/23 15:00:00 EST, 10/13/22 14:59:00 EST, Tablet, [facility]/pharmacy #[id number], Partial fill upon patient request if the prescription is for a... Start Date: 10/13/22 Stop Date: 10/14/23 Status: Ordered miSOPROStol 200 mcg oral tablet 4 tablet = 800 mcg, By Mouth, Once, bolivar 4 tabletas buccal en 24 horas. puede repetir 24-48 horas despues si necesita., # 8 tablet, 0 Refills, Soft Stop, 10/20/22 14:35:00 EST, [id number], 163, cm, 10/20/22 13:53:00 EST, Height, 79.9, kg, /... Start Date: 10/20/22 Status: Ordered naproxen 500 mg oral tablet 1 tablet = 500 mg, By Mouth, 2 times a day, for 10 days, # 20 tablet, 3 Refills, Acute 11/29/22 14:39:00 EST, 10/20/22 14:39:00 EST, Tablet, [facility]/pharmacy #[id number], 163, cm, 10/20/22 13:53:00 EST, Height, 79.9, kg, 10/20/22 13:53:00 EST, Dry Weight Start Date: 10/20/22 Stop Date: 11/29/22 Status: Ordered ohm Allergy Relief 10 mg oral tablet 1 tablet, By Mouth, Daily, # 30 tablet, 0 Refills, Maintenance, 01/18/21 15:54:00 EST, [facility] STORE [facility], 163, cm, 12/25/20 11:18:00 EST, Height, 72.9, kg, 05/17/20 16:57:00 EDT, Dry Weight Start Date: 01/18/21 Status: Ordered Provera 10 mg oral tablet 10 mg, 1, tablet, By Mouth, Daily, # 10 tablet, Refills 0, Tot. Refills 0, Maintenance, 04/08/22 9:49:00 EDT, Route to Pharmacy Electronically, [facility]/pharmacy #[id number], Partial fill upon patient request if the prescription is for a schedule II opioid drug.... Start Date: 04/08/22 Stop Date: 04/18/22 Status: Ordered Symbicort 80mcg/4.5mcg Inhaler 2, puffs, Inhalation, 2 times a day, # 1 each, Refills 1, Tot. Refills 1, Maintenance, 05/07/22 9:12:00 EDT, Aerosol, Route to Pharmacy Electronically, [id number], [facility]/pharmacy #[id number], 163, cm, 04/08/22 9:49:00 EDT, Height, [...] Associate Professional Member Role: PCP Address: Address: [address] [place] [address]- Care Team Related Persons Name: YANELI PEÑALOZA Address: [place] [address] Name: FENG PEÑALOZA Name: SEEMA ESPINOZA Address: home [address] [place] [id number] Name: KALI BIGGS Address: [place] [address]
--- OUTSIDE RECORDS SUMMARY | 2023-04-05 02:30 | XMS_ITS | Continuity of Care Document ---
Author Name Unknown Organization [facility] Address [address] [place] [address]- Care Team Providers Care Channel Partners Name Role Phone Donald NICK, Katia Pinon Primary Care Physician Encounter [facility] [place] Date(s): 10/08/20 - 12/08/20 [facility] [address] [place], [place] [address] Attending Physician: Vicky Hawthorne DO Admitting Physician: Vicky Hawthorne DO Allergies, Adverse Reactions, Alerts Substance Reaction Severity Status Latex Hives Active Immunizations Given and Recorded Vaccine Date Status Refusal Reason Hepatitis A-Hepatitis B Vaccine 12/07/20 Given Measles/Mumps/Rubella [...]
--- OUTSIDE RECORDS SUMMARY | 2023-04-05 02:30 | XMS_ITS | Continuity of Care Document ---
Author Name Unknown Organization [facility] Address [address] [place] [address]- Care Team Providers Care Airport Ramp Agent Name Role Phone Donald NICK, Katia Pinon Primary Care Physician ( [phone] Encounter [facility] [place] Date(s): 05/28/21 - 07/06/[address] [address] Attending Physician: Arvind Mendosa MD Admitting Physician: Arvind Mendosa MD Referring Physician: Arvind Mendosa MD Allergies, Adverse Reactions, Alerts Substance Reaction [...] Gm, 0 Refills, Maintenance, 12/25/20 15:01:00 EST, [place], [facility]/pharmacy #[id number], Partial fill upon patient request if the prescription is for a schedule II opioid drug., 1 sprays Nares, Both 2 times a day, 163,... Start Date: 12/25/20 Status: Ordered naproxen 500 mg oral tablet 1 tablet = 500 mg, By Mouth, 2 times a day, PRN for headache, with food., # 30 tablet, 1 Refills, Maintenance, 06/18/21 8:29:00 EDT, Tablet, [facility]/pharmacy #[id number], Partial fill upon patient request if the prescription is for a schedule II opioid drug., 1... Start Date: 06/18/21 Status: Ordered ohm Allergy Relief 10 mg oral tablet 1 tablet, By Mouth, Daily, # 30 tablet, 0 Refills, Maintenance, 01/18/21 15:54:00 EST, [facility] STORE [address]7232, 163, cm, 12/25/20 11:18:00 EST, Height, 72.9, kg, 05/17/20 16:57:00 EDT, Dry Weight Start Date: 01/18/21 Status: Ordered Symbicort 80mcg/4.5mcg Inhaler 2, puffs, Inhalation, 2 times a day, # 1 each, Refills 11, Tot. Refills 11, Maintenance, 04/11/21 14:21:00 EDT, Aerosol, Route to Pharmacy Electronically, [id number], [facility]/pharmacy #[id number], 163, cm, 04/11/21 13:52:00 EDT, [...]
--- OUTSIDE RECORDS SUMMARY | 2023-04-05 02:30 | XMS_ITS | Continuity of Care Document ---
Author Name Unknown Organization [facility] Address [address] [place] [address]- Care Team Providers Care Appliance Adjuster Name Role Phone Donald NICK, Katia Pinon Primary Care Physician ( [phone] Encounter [facility] [place] Date(s): 04/16/21 - 05/16/21 [facility] [address] [place] [address]- Allergies, Adverse Reactions, Alerts Substance Reaction Severity [...] Gm, 0 Refills, Maintenance, 12/25/20 15:01:00 EST, [place], [facility]/pharmacy #[id number], Partial fill upon patient request if the prescription is for a schedule II opioid drug., 1 sprays Nares, Both 2 times a day, 163,... Start Date: 12/25/20 Status: Ordered ohm Allergy Relief 10 mg oral tablet 1 tablet, By Mouth, Daily, # 30 tablet, 0 Refills, Maintenance, 01/18/21 15:54:00 EST, [facility], 163, cm, 12/25/20 11:18:00 EST, Height, 72.9, kg, 05/17/20 16:57:00 EDT, Dry Weight Start Date: 01/18/21 Status: Ordered SUMAtriptan 50 mg oral tablet 1 tablet = 50 mg, By Mouth, Daily, PRN for migraine headache, for 30 days, may repeat dose after 2 hours up to a maximum of 2, # 9 tablet, 0 Refills, Acute 06/12/21 17:49:00 EDT, 05/13/21 17:49:00 EDT, Tablet, [facility]/pharmacy #[id number], Partial fill upon pat... Start Date: 05/13/21 Stop Date: 06/12/21 Status: Ordered Symbicort 80mcg/4.5mcg Inhaler 2, puffs, Inhalation, 2 times a day, # 1 each, Refills 11, Tot. Refills 11, Maintenance, 04/11/21 14:21:00 EDT, Aerosol, Route to Pharmacy Electronically, [id number], [facility]/pharmacy #[id number], 163, cm, 04/11/21 13:52:00 EDT, [...]
--- OUTSIDE RECORDS SUMMARY | 2023-04-05 02:30 | XMS_ITS | Continuity of Care Document ---
Author Name Unknown Organization [facility] Address [address] [place] [address]- Care Team Providers Care Cavity Pump Operator Name Role Phone Katia Bennett MD Primary Care Physician ( [phone] [place] [facility] [place] - 11/30/[address] [address] Attending Physician: Not on Staff, Attending MD Referring Physician: Katia Bennett MD Allergies, Adverse Reactions, Alerts Substance Reaction [...]
--- OUTSIDE RECORDS SUMMARY | 2023-04-05 02:30 | XMS_ITS | Continuity of Care Document ---
Author Name Unknown Organization [facility] Address [address] [place] [address]- Care Team Providers Care Laborer Laboratory Name Role Phone Donald NICK, Katia Pinon Primary Care Physician Encounter [facility] Date(s): 10/12/20 - 11/11/20 [facility] [address] [place], [place] [address] Allergies, Adverse Reactions, Alerts Substance Reaction [...]
--- OUTSIDE RECORDS SUMMARY | 2023-04-05 02:30 | XMS_ITS | Continuity of Care Document ---
Author Name Unknown Organization [facility] Address [address] [place], [place] [id number]- Care Team Providers Care Business Analytics Manager Name Role Phone Wicho Still NP Primary Care Physician [phone] Encounter [facility] [place] Date(s): 11/10/22 - 12/10/22 [facility]/[place] [address]- [place] Allergies, Adverse Reactions, Alerts Substance Reaction [...] Gm, 0 Refills, Maintenance, 12/25/20 15:01:00 EST, [place], [facility]/pharmacy #[id number], Partial fill upon patient request if the prescription is for a schedule II opioid drug., 1 sprays Nares, Both 2 times a day, 163,... Start Date: 12/25/20 Status: Ordered melatonin 5 mg oral tablet See Instructions, PRN for insomnia, 1-2 tablets By Mouth Daily at bedtime 30 days, # 120 tablet, 1 Refills, Acute 10/14/23 15:00:00 EST, 10/13/22 14:59:00 EST, Tablet, [facility]/pharmacy #[id number], Partial fill upon patient request if the prescription is for a... Start Date: 10/13/22 Stop Date: 10/14/23 Status: Ordered miSOPROStol 200 mcg oral tablet 4 tablet = 800 mcg, By Mouth, Once, bolivar 4 tabletas buccal en 24 horas. puede repetir 24-48 horas despues si necesita., # 8 tablet, 0 Refills, Soft Stop, 10/20/22 14:35:00 EST, [facility]/pharmacy #[id number], 163, cm, 10/20/22 13:53:00 EST, Height, 79.9, kg, ... Start Date: 10/20/22 Status: Ordered ohm Allergy Relief 10 mg oral tablet 1 tablet, By Mouth, Daily, # 30 tablet, 0 Refills, Maintenance, 01/18/21 15:54:00 EST, [facility] STORE 96542, 163, cm, 12/25/20 11:18:00 EST, Height, 72.9, kg, 05/17/20 16:57:00 EDT, Dry Weight Start Date: 01/18/21 Status: Ordered Provera 10 mg oral tablet 10 mg, 1, tablet, By Mouth, Daily, # 10 tablet, Refills 0, Tot. Refills 0, Maintenance, 04/08/22 9:49:00 EDT, Route to Pharmacy Electronically, [facility]/pharmacy #[id number], Partial fill upon patient request if the prescription is for a schedule II opioid drug.... Start Date: 04/08/22 Stop Date: 04/18/22 Status: Ordered Symbicort 80mcg/4.5mcg Inhaler 2, puffs, Inhalation, 2 times a day, # 1 each, Refills 1, Tot. Refills 1, Maintenance, 05/07/22 9:12:00 EDT, Aerosol, Route to Pharmacy Electronically, [id number], [facility]/pharmacy #[id number], 163, cm, 04/08/22 9:49:00 EDT, Height, 72... Start Date: 05/07/22 Status: Ordered ZyrTEC 10 mg oral tablet 1 tablet = 10 mg, By Mouth, Daily, # 30 tablet, 0 Refills, Maintenance, 03/21/22 10:36:00 EDT, Tablet, [facility]/pharmacy #[id number], Partial fill upon patient request [...] Team Personnel Name: Wicho Still NP Position: [facility] PCO Associate Professional Member Role: PCP Address: Address: [address] [place] [address] Care Team Related Persons Name: YANELI PEÑALOZA Address: home [place], [place] Name: FENG PEÑALOZA Name: SEEMA ESPINOZA Address: home [address] [place] [address] Name: KALI BIGGS Address: [place] [address]
--- OUTSIDE RECORDS SUMMARY | 2023-04-05 02:30 | XMS_ITS | Continuity of Care Document ---
Author Name Unknown Organization [facility] Address [address] [place] [address]- Care Team Providers Care Head Turning Machine Operator Name Role Phone Donald NICK, Katia Pinon Primary Care Physician Encounter [facility] Date(s): 06/03/21 - 07/03/[address] [address] Allergies, Adverse Reactions, Alerts Substance [...] Gm, 0 Refills, Maintenance, 12/25/20 15:01:00 EST, [place], [facility]/pharmacy #[id number], Partial fill upon patient request if the prescription is for a schedule II opioid drug., 1 sprays Nares, Both 2 times a day, 163,... Start Date: 12/25/20 Status: Ordered naproxen 500 mg oral tablet 1 tablet = 500 mg, By Mouth, 2 times a day, PRN for headache, with food., # 30 tablet, 1 Refills, Maintenance, 06/18/21 8:29:00 EDT, Tablet, [facility]/pharmacy #[id number], Partial fill upon patient request if the prescription is for a schedule II opioid drug., 1... Start Date: 06/18/21 Status: Ordered ohm Allergy Relief 10 mg oral tablet 1 tablet, By Mouth, Daily, # 30 tablet, 0 Refills, Maintenance, 01/18/21 15:54:00 EST, [facility] STORE [address]82, 163, cm, 12/25/20 11:18:00 EST, Height, 72.9, kg, 05/17/20 16:57:00 EDT, Dry Weight Start Date: 01/18/21 Status: Ordered Symbicort 80mcg/4.5mcg Inhaler 2, puffs, Inhalation, 2 times a day, # 1 each, Refills 11, Tot. Refills 11, Maintenance, 04/11/21 14:21:00 EDT, Aerosol, Route to Pharmacy Electronically, [id number], [facility]/pharmacy #[id number], 163, cm, 04/11/21 13:52:00 [...]
--- OUTSIDE RECORDS SUMMARY | 2023-04-05 02:30 | XMS_ITS | Continuity of Care Document ---
Author Name Unknown Organization [facility] Address [address] [place] [address]- Care Team Providers Care Boiler Water Tester Name Role Phone Donald NICK, Katia Pinon Primary Care Physician Encounter [facility] [place] Date(s): 04/16/21 - 05/16/21 [facility] [address] [place] [address]- Allergies, Adverse Reactions, Alerts Substance Reaction Severity [...] 0 Refills, Maintenance, 12/25/20 15:01:00 EST, [place], [facility]/pharmacy #[id number], Partial fill upon patient request if the prescription is for a schedule II opioid drug., 1 sprays Nares, Both 2 times a day, 163,... Start Date: 12/25/20 Status: Ordered ohm Allergy Relief 10 mg oral tablet 1 tablet, By Mouth, Daily, # 30 tablet, 0 Refills, Maintenance, 01/18/21 15:54:00 EST, [facility], 163, cm, 12/25/20 11:18:00 EST, Height, 72.9, [...] 17:49:00 EDT, 05/13/21 17:49:00 EDT, Tablet, [facility]/pharmacy #[id number], Partial fill upon pat... Start Date: 05/13/21 Stop Date: 06/12/21 Status: Ordered Symbicort 80mcg/4.5mcg Inhaler 2, puffs, Inhalation, 2 times a day, # 1 each, Refills 11, Tot. Refills 11, Maintenance, 04/11/21 14:21:00 EDT, Aerosol, Route to Pharmacy Electronically, [id number], [facility]/pharmacy #0488, 163, cm, 04/11/21 13:52:00 EDT, Height... [...]
[2023-04-05] MEDS: Lidocaine 4 % Cream KIT 1 APPL TOPICAL (02:31)
--- OUTSIDE RECORDS SUMMARY | 2023-04-05 02:31 | XMS_ITS | Continuity of Care Document ---
Author Name Unknown Organization [facility] Address [address] [place] [address]- Care Team Providers Care Informatica Mdm Developer Name Role Phone Donald NICK, Katia Pinon Primary Care Physician Encounter [facility] Date(s): 01/02/21 - 02/01/21 [facility] [address] [place] [address]- Allergies, Adverse Reactions, Alerts Substance Reaction Severity [...] Gm, 0 Refills, Maintenance, 12/25/20 15:01:00 EST, [place], [facility], Partial fill upon patient request if the prescription is for a schedule II opioid drug., 1 sprays Nares, Both 2 times a day, 163,... Start Date: 12/25/20 Status: Ordered ohm Allergy Relief 10 mg oral tablet 1 tablet, By Mouth, Daily, # 30 tablet, 0 Refills, Maintenance, 01/18/21 15:54:00 EST, [facility], 163, cm, 12/25/20 11:18:00 EST, Height, 72.9, kg, 05/17/20 16:57:00 EDT, Dry Weight Start Date: 01/18/21 Status: Ordered Problem List Condition Effective Dates Status Health Status Inform ant Uterus, bicornuate(Confirmed) Active Carpal tunnel syndrome on eli th sides(Confirmed) Active Kidney anomaly, congenital(Confirmed) Active Heart murmur(Confirmed) Active Social History Social History Type Response Smoking Status Never smoker; Tobacc o user in household: No entered on: 09/10/16 Sex
--- OUTSIDE RECORDS SUMMARY | 2023-04-05 02:31 | XMS_ITS | Continuity of Care Document ---
Author Name Unknown Organization [facility] Address [address] [place] [address]- Care Team Providers Care Business Intelligence Reporting Analyst Name Role Phone Donald NICK, Katia Pinon Primary Care Physician [place] [facility] [place](s): 05/09/21 - 06/08/21 [facility] [address] [place] [address]- Allergies, Adverse Reactions, Alerts Substance Reaction Severity [...] tablet, 1 Refills, Maintenance, 05/17/21 10:25:00 EDT, [facility]/pharmacy #[id number], Partial fill upon patient request if the prescription is for a schedule II opioid drug., 163, cm, 05/17/21 10:00:00 EDT, Height, 72.9,... Start Date: 05/17/21 Status: Ordered Flonase 50 mcg/inh nasal spray 1 sprays, Nares, Both, 2 times a day, # 16 Gm, 0 Refills, Maintenance, 12/25/20 15:01:00 EST, [place], [id number], Partial fill upon patient request if the prescription is for a schedule II opioid drug., 1 sprays Nares, Both 2 times a day, 163,... Start Date: 12/25/20 Status: Ordered ohm Allergy Relief 10 mg oral tablet 1 tablet, By Mouth, Daily, # 30 tablet, 0 Refills, Maintenance, 01/18/21 15:54:00 EST, [facility] STORE 71338, 163, cm, 12/25/20 11:18:00 EST, Height, 72.9, kg, 05/17/20 16:57:00 EDT, Dry Weight Start Date: 01/18/21 Status: Ordered SUMAtriptan 50 mg oral tablet See Instructions, PLEASE SEE ATTACHED FOR DETAILED DIRECTIONS, # 9 tablet, 0 Refills, Soft Stop, [facility] ST[facility] 71545, 163, cm, 05/17/21 10:00:00 EDT, Height, 72.9, kg, 05/17/20 16:57:00 EDT, Dry Weight Start Date: 06/07/21 Status: Ordered Symbicort 80mcg/4.5mcg Inhaler 2, puffs, Inhalation, 2 times a day, # 1 each, Refills 11, Tot. Refills 11, Maintenance, 04/11/21 14:21:00 EDT, Aerosol, Route to Pharmacy Electronically, [id number], [facility]/pharmacy #[id number], 163, cm, 04/11/21 [...]
--- OUTSIDE RECORDS SUMMARY | 2023-04-05 02:31 | XMS_ITS | Continuity of Care Document ---
Author Name Unknown Organization [facility] Address [address] [place] [address]- Care Team Providers Care Structural Engineering Drafting Officer Name Role Phone Not on Staff, PCP Primary Care Physician Unavail able Encounter [facility] Date(s): 05/17/20 - 05/24/20 [facility] [address] [place] [address]- [facility] Encounter Diagnosis Rash of neck(Discharge Diagnosis) - 05/17/20 Anterior cervical lymphadenopathy(Discharge Diagnosis) - 05/17/20 Attending Physician: Bridger NICK, Alexis Harrison Allergies, Adverse Reactions, Alerts Substance Reaction Severity [...] 2 times a day, to affected area. persian., # 30 Gm, 3 Refills, Maintenance, Cream [...] 15 mL, 0 Refills, Maintenance, 01/01/16 14:16:43, [place], 2 sprays Nares, Both Daily,x30 days Start [...] routine gynecological exam(Confirmed) Active 1nuvaring initiated 02/17/14 Diagnosis Diagnosis Type Effective Dates Health Status Clinical Service Informant Rash of neck Discharge Diagnosis 05/17/20 Anterior cervical lymphadenopathy Discharge Diagnosis 05/17/20 Vital Signs Most recent to oldest [Reference Range]: 1 Height 163 cm (05/17/20 4:47 PM) Weight 72.9 kg (05/17/20 4:47 PM) Oxygen Saturation [94-100 %] 100 % (05/17/20 4:47 PM) Pulse Rate [55-90 bpm] 65 bpm (05/17/20 4:47 PM) Body Mass Index [18.5-24.99] 27.44 *H* (05/17/20 4:47 PM) Blood Pressure [90-138/55-84 mm Hg] 117/ 78mm Hg (05/17/20 4:47 PM) Respiratory Rate [16-30 br/min] 18 br/mi n (05/17/20 4:47 PM) Temperature [96.8-100.4 DegF] 97.3 DegF (05/17/20 4:47 PM) Mode of Delivery (Oxygen) Room air (05/17/20 4:47 PM) Blood pressure sites Arm, right (05/17/20 4:47 PM) Temperature Route Temporal (05/17/20 4:47 PM) Dry Weight 72.9 kg (05/17/20 4:47 PM) Weight Obtained Via Standing scale (05/17/20 4:47 PM) Dry Weight Obtained Via Standing scale (05/17/20 4:47 PM) Social History Social History Type Response Smoking Status Never smoker; Tobacc o user in household: No entered on: 09/10/16 Sex
--- OUTSIDE RECORDS SUMMARY | 2023-04-05 02:31 | XMS_ITS | Continuity of Care Document ---
Author Name Unknown Organization [facility] Address [address] [place] [address]- Care Team Providers Care Toy Packer Name Role Phone Donald NICK, Katia Pinon Primary Care Physician [place] [facility] [place]/22/21 - 06/21/21 [facility] [address] [place] [address] Allergies, Adverse Reactions, Alerts Substance Reaction Severity [...] Gm, 0 Refills, Maintenance, 12/25/20 15:01:00 EST, [place], [facility]/pharmacy #[id number], Partial fill upon [...] 1 Refills, Maintenance, 06/18/21 8:29:00 EDT, Tablet, [facility]/pharmacy #[id number], Partial fill upon patient request if the prescription is for a schedule II opioid drug., 1... Start Date: 06/18/21 Status: Ordered ohm Allergy Relief 10 mg oral tablet 1 tablet, By Mouth, Daily, # 30 tablet, 0 Refills, Maintenance, 01/18/21 15:54:00 EST, [facility] STORE 43541, 163, cm, 12/25/20 11:18:00 EST, Height, 72.9, kg, 05/17/20 16:57:00 EDT, Dry Weight Start Date: 01/18/21 Status: Ordered Symbicort 80mcg/4.5mcg Inhaler 2, puffs, Inhalation, 2 times a day, # 1 each, Refills 11, Tot. Refills 11, Maintenance, 04/11/21 14:21:00 EDT, Aerosol, Route to Pharmacy Electronically, [id number], [facility]/pharmacy #[id number], 163, cm, 04/11/21 [...]
--- OUTSIDE RECORDS SUMMARY | 2023-04-05 02:31 | XMS_ITS | Continuity of Care Document ---
Author Name Unknown Organization [facility] Address Unknown Care Team Providers Care Office Nurse Practitioner Name Role Phone Donald NICK, Katia Pinon Primary Care Physician [place] [facility] [place] 03/21[place]22 - 04/23/22 [facility] Attending Physician: Piotr Mascorro MD Admitting Physician: Piotr Mascorro MD Allergies, Adverse Reactions, Alerts Substance Reaction [...] [place] 2Result Comment: [10/23/2015] ORDERED BY DR. MASCORRO 3Admin Note: VIS 06/17/2011GIVEN 4Admin Note: BOOSTRIX [...] Gm, 0 Refills, Maintenance, 12/25/20 15:01:00 EST, [place], [facility]/pharmacy #[id number], Partial fill upon patient request [...] tablet, 0 Refills, Maintenance, 01/18/21 15:54:00 EST, [facility] STORE [address]325, 163, cm, 12/25/20 11:18:00 EST, Height, 72.9, kg, 05/17/20 16:57:00 EDT, Dry Weight Start Date: 01/18/21 Status: Ordered Provera 10 mg oral tablet 10 mg, 1, tablet, By Mouth, Daily, # 10 tablet, Refills 0, Tot. Refills 0, Maintenance, 04/08/22 9:49:00 EDT, Route to Pharmacy Electronically, [facility]/pharmacy #[id number], Partial fill upon patient request if the prescription is for a schedule II opioid drug.... Start Date: 04/08/22 Stop Date: 04/18/22 Status: Ordered Symbicort 80mcg/4.5mcg Inhaler 2, puffs, Inhalation, 2 times a day, # 1 each, Refills 11, Tot. Refills 11, Maintenance, 04/11/21 14:21:00 EDT, Aeros[place], Route to Pharmacy Electronically, [id number], [facility]/pharmacy #0488, 163, cm, 04/11/21 13:52:00 EDT, Height... Start Date: 04/11/21 Status: Ordered ZyrTEC 10 mg oral tablet 1 tablet = 10 mg, By Mouth, Daily, # 30 tablet, 0 Refills, Maintenance, 03/21/22 10:36:00 EDT, Tablet, [facility]/pharmacy #0618, Partial fill upon patient request if the [...]
--- OUTSIDE RECORDS SUMMARY | 2023-04-05 02:31 | XMS_ITS | Continuity of Care Document ---
Author Name Unknown Organization [facility] Address [address] [place] [address]- Care Team Providers Care Health Researcher Name Role Phone Donald NICK, Katia Pinon Primary Care Physician Encounter [facility] [place] Date(s): 06/04/21 - 07/04/21 [facility] [address] [place] [address]- Allergies, Adverse Reactions, Alerts Substance Reaction Severity [...] Gm, 0 Refills, Maintenance, 12/25/20 15:01:00 EST, [place], [facility]/pharmacy #[id number], Partial fill upon patient request if the prescription is for a schedule II opioid drug., 1 sprays Nares, Both 2 times a day, 163,... Start Date: 12/25/20 Status: Ordered naproxen 500 mg oral tablet 1 tablet = 500 mg, By Mouth, 2 times a day, PRN for headache, with food., # 30 tablet, 1 Refills, Maintenance, 06/18/21 8:29:00 EDT, Tablet, [facility]/pharmacy #[id number], Partial fill upon patient request if the prescription is for a schedule II opioid drug., 1... Start Date: 06/18/21 Status: Ordered ohm Allergy Relief 10 mg oral tablet 1 tablet, By Mouth, Daily, # 30 tablet, 0 Refills, Maintenance, 01/18/21 15:54:00 EST, [facility] STORE [id number], 163, cm, 12/25/20 11:18:00 EST, Height, 72.9, kg, 05/17/20 16:57:00 EDT, Dry Weight Start Date: 01/18/21 Status: Ordered Symbicort 80mcg/4.5mcg Inhaler 2, puffs, Inhalation, 2 times a day, # 1 each, Refills 11, Tot. Refills 11, Maintenance, 04/11/21 14:21:00 EDT, Aerosol, Route to Pharmacy Electronically, [id number], [facility]/pharmacy #[id number], 163, cm, 04/11/21 13:52:00 EDT, [...]
--- OUTSIDE RECORDS SUMMARY | 2023-04-05 02:31 | XMS_ITS | Continuity of Care Document ---
Author Name Unknown Organization [facility] Address [address] [place] [address]- Care Team Providers Care Digital Media Specialist Name Role Phone Not on Staff, PCP Primary Care Physician Unavail able Encounter [facility] Date(s): 07/13/20 - 08/12/[address] [address]- [facility] Allergies, Adverse Reactions, Alerts Substance Reaction [...] 2 times a day, to affected area. nauruan., # 30 Gm, 3 Refills, Maintenance, Cream [...] 15 mL, 0 Refills, Maintenance, 01/01/16 14:16:43, [place], 2 sprays Nares, Both Daily,x30 days Start [...]
--- OUTSIDE RECORDS SUMMARY | 2023-04-05 02:31 | XMS_ITS | Continuity of Care Document ---
Author Name Unknown Organization [facility] Address [address] [place] [address]- Care Team Providers Care Quiller Operator Name Role Phone Wicho Still NP Primary Care Physician [place] [facility] [place](s): 01/09/23 - 02/08/23 [facility] [address]- [place] Allergies, Adverse Reactions, Alerts Substance Reaction [...] Gm, 0 Refills, Maintenance, 02/06/23 14:49:00 EDT, [place], [id number], Partial fill upon patient request [...] 9:12:00 EDT, Aerosol, Route to Pharmacy Electronically, [id number], [id number], 163, cm, 04/08/22 9:49:00 EDT, Height, 72... Start Date: 05/07/22 Status: Ordered ZyrTEC 10 mg oral tablet 1 tablet = 10 mg, By Mouth, Daily, # 30 tablet, 0 Refills, Maintenance, 02/06/23 14:49:00 EDT, [place], [id number], Partial fill upon patient request if the [...] Team Personnel Name: Wicho Still NP Position: [facility] PCO Associate Professional Member Role: PCP Address: Address: [address] [place] [address]- Care Team Related Persons Name: YANELI PEÑALOZA Address: [place] [address] Name: FENG PEÑALOZA Name: SEEMA ESPINOZA Address: home [address] [place] [id number] Name: AKLI BIGGS Address: home [place] [address]
--- OUTSIDE RECORDS SUMMARY | 2023-04-05 02:31 | XMS_ITS | Continuity of Care Document ---
Author Name Unknown Organization [facility] Address [address] [place] [address]- Care Team Providers Care Waiter/Waitress First Class Name Role Phone Donald NICK, Katia Pinon Primary Care Physician ( [phone] [facility] [place] Date(s): 11/09/20 - 12/14/20 [facility] [address] [place], [place] [address] Attending Physician: Vicky Hawthorne DO [...]
--- OUTSIDE RECORDS SUMMARY | 2023-04-05 02:31 | XMS_ITS | Continuity of Care Document ---
Author Name Unknown Organization [facility] Address [address] [place] [address]- Care Team Providers Care Agricultural Research Technician Name Role Phone Donald NICK, Katia Pinon Primary Care Physician Encounter [facility] Date(s): 11/30/20 - 12/30/20 [facility] [address] [place] [address]- Allergies, Adverse Reactions, Alerts Substance Reaction Severity [...] Gm, 0 Refills, Maintenance, 12/25/20 15:01:00 EST, [place], [id number], Partial fill upon patient request if the prescription is for a schedule II opioid drug., 1 sprays Nares, Both 2 times a day, 163,... Start Date: 12/25/20 Status: Ordered loratadine 10 mg oral tablet 10 mg, 1, tablet, By Mouth, Daily, # 30 tablet, Refills 0, Tot. Refills 0, Maintenance, 02/02/21 15:01:00 EST, Route to Pharmacy Electronically, [facility]/pharmacy #[id number], Partial fill upon patient request if the [...]
--- OUTSIDE RECORDS SUMMARY | 2023-04-05 02:31 | XMS_ITS | Continuity of Care Document ---
Author Name Unknown Organization [facility] Address [address] [address]- Care Team Providers Care Athletic Scout Name Role Phone Wicho Still NP Primary Care Physician Encounter [facility] [place] Date(s): 10/03/22 - 11/02/22 [facility] and [address] [address] Allergies, Adverse Reactions, Alerts Substance Reaction Severity [...] Gm, 0 Refills, Maintenance, 12/25/20 15:01:00 EST, [place], [facility]/pharmacy #[id number], Partial fill upon patient request if the prescription is for a schedule II opioid drug., 1 sprays Nares, Both 2 times a day, 163,... Start Date: 12/25/20 Status: Ordered melatonin 5 mg oral tablet See Instructions, PRN for insomnia, 1-2 tablets By Mouth Daily at bedtime 30 days, # 120 tablet, 1 Refills, Acute 10/14/23 15:00:00 EST, 10/13/22 14:59:00 EST, Tablet, [facility]/pharmacy #[id number], Partial fill upon patient request if the prescription is for a... Start Date: 10/13/22 Stop Date: 10/14/23 Status: Ordered miSOPROStol 200 mcg oral tablet 4 tablet = 800 mcg, By Mouth, Once, bolivar 4 tabletas buccal en 24 horas. puede repetir 24-48 horas despues si necesita., # 8 tablet, 0 Refills, Soft Stop, 10/20/22 14:35:00 EST, [facility]/pharmacy #[id number], 163, cm, 10/20/22 13:53:00 EST, Height, 79.9, kg, /... Start Date: 10/20/22 Status: Ordered naproxen 500 mg oral tablet 1 tablet = 500 mg, By Mouth, 2 times a day, for 10 days, # 20 tablet, 3 Refills, Acute 11/29/22 14:39:00 EST, 10/20/22 14:39:00 EST, Tablet, [facility]/pharmacy #[id number], 163, cm, 10/20/22 13:53:00 EST, Height, 79.9, kg, 10/20/22 13:53:00 EST, Dry Weight Start Date: 10/20/22 Stop Date: 11/29/22 Status: Ordered ohm Allergy Relief 10 mg oral tablet 1 tablet, By Mouth, Daily, # 30 tablet, 0 Refills, Maintenance, 01/18/21 15:54:00 EST, [facility] STORE [id number], 163, cm, 12/25/20 11:18:00 EST, Height, 72.9, kg, 05/17/20 16:57:00 EDT, Dry Weight Start Date: 01/18/21 Status: Ordered Provera 10 mg oral tablet 10 mg, 1, tablet, By Mouth, Daily, # 10 tablet, Refills 0, Tot. Refills 0, Maintenance, 04/08/22 9:49:00 EDT, Route to Pharmacy Electronically, [facility]/pharmacy #[id number], Partial fill upon patient request if the prescription is for a schedule II opioid drug.... Start Date: 04/08/22 Stop Date: 04/18/22 Status: Ordered Symbicort 80mcg/4.5mcg Inhaler 2, puffs, Inhalation, 2 times a day, # 1 each, Refills 1, Tot. Refills 1, Maintenance, 05/07/22 9:12:00 EDT, [place]eros[place], Route to Pharmacy Electronically, [id number], [facility]/pharmacy #[id number], 163, cm, 04/08/22 9:49:00 EDT, Height, [...] List Condition Confirmation Course Effective Dates Status [facility] atus Informant Uterus, bicornuate Confirmed Active [...] Associate Professional Member Role: PCP Address: Address: [address] [place] [address]- Care Team Related Persons Name: YANELI PEÑALOZA Address: [place] [address] Name: FENG PEÑALOZA Name: SEEMA ESPINOZA Address: home [address] [place] [id number] Name: KALI BIGGS Address: [place] [address]
--- OUTSIDE RECORDS SUMMARY | 2023-04-05 02:31 | XMS_ITS | Continuity of Care Document ---
Author Name Unknown Organization [facility] Delisa devlins [facility] Address [address] [place] [address]- Care Team Providers Care Framing Carpenter Name Role Phone Wicho Still NP Primary Care Physician [facility] [place] Date(s): 01/12/23 - [facility] [address] [place] [address]- Allergies, Adverse Reactions, Alerts Substance Reaction Severity [...] Gm, 0 Refills, Maintenance, 02/06/23 14:49:00 EDT, [place], [id number], Partial fill upon patient request [...] 9:12:00 EDT, [place]eros[place], Route to Pharmacy Electronically, [id number], [id number], 163, cm, 04/08/22 9:49:00 EDT, Height, 72... Start Date: 05/07/22 Status: Ordered ZyrTEC 10 mg oral tablet 1 tablet = 10 mg, By Mouth, Daily, # 30 tablet, 0 Refills, Maintenance, 02/06/23 14:49:00 EDT, [place], [id number], Partial fill upon [...] Team Personnel Name: Wicho Still NP Position: [facility] PCO Associate Professional Member Role: PCP Address: Address: [address] [place] [address]- Care Team Related Persons Name: YANELI PEÑALOZA Address: [place], [place] Name: FENG PEÑALOZA Name: SEEMA ESPINOZA Address: home [address] [place] [address] Name: KALI BIGGS Address: [place] [address]
--- OUTSIDE RECORDS SUMMARY | 2023-04-05 02:31 | XMS_ITS | Continuity of Care Document ---
Author Name Unknown Organization [facility] Address [address] [place] [address]- Care Team Providers Care Farm Marketer Name Role Phone Not on Staff, PCP Primary Care Physician Unavail able Encounter [facility] Date(s): 05/17/20 - 06/16/20 [facility] [address] [place] [address]- [facility] Attending Physician: AdmDaniela addison Admitting Physician: AdmtrDaniela [...] 2 times a day, to affected area. romanian., # 30 Gm, 3 Refills, Maintenance, Cream [...] 15 mL, 0 Refills, Maintenance, 01/01/16 14:16:43, [place], 2 sprays Nares, Both Daily,x30 days Start [...]
--- OUTSIDE RECORDS SUMMARY | 2023-04-05 02:31 | XMS_ITS | Continuity of Care Document ---
Author Name Unknown Organization [facility] Address [address] [place] [address]- Care Team Providers Care Dog Obedience Instructor Name Role Phone Wicho Still NP Primary Care Physician [place] [facility] [place](s): 10/20/22 - 11/19/22 [facility] [address]- [place] Allergies, Adverse Reactions, Alerts Substance Reaction [...] Gm, 0 Refills, Maintenance, 12/25/20 15:01:00 EST, [place], [facility]/pharmacy #[id number], Partial fill [...] 10/14/23 15:00:00 EST, 10/13/22 14:59:00 EST, Tablet, [facility]/pharmacy #[id number], Partial fill upon patient request if the prescription is for a... Start Date: 10/13/22 Stop Date: 10/14/23 Status: Ordered miSOPROStol 200 mcg oral tablet 4 tablet = 800 mcg, By Mouth, Once, bolivar 4 tabletas buccal en 24 horas. puede repetir 24-48 horas despues si necesita., # 8 tablet, 0 Refills, Soft Stop, 10/20/22 14:35:00 EST, [facility]/pharmacy #[id number], 163, cm, 10/20/22 13:53:00 EST, Height, 79.9, kg, /... Start Date: 10/20/22 Status: Ordered naproxen 500 mg oral tablet 1 tablet = 500 mg, By Mouth, 2 times a day, for 10 days, # 20 tablet, 3 Refills, Acute 11/29/22 14:39:00 EST, 10/20/22 14:39:00 EST, Tablet, [facility]/pharmacy #[id number], 163, cm, 10/20/22 13:53:00 EST, Height, 79.9, kg, 10/20/22 13:53:00 EST, Dry Weight Start Date: 10/20/22 Stop Date: 11/29/22 Status: Ordered ohm Allergy Relief 10 mg oral tablet 1 tablet, By Mouth, Daily, # 30 tablet, 0 Refills, Maintenance, 01/18/21 15:54:00 EST, [facility] STORE [id number], 163, cm, 12/25/20 11:18:00 EST, Height, 72.9, kg, 05/17/20 16:57:00 EDT, Dry Weight Start Date: 01/18/21 Status: Ordered Provera 10 mg oral tablet 10 mg, 1, tablet, By Mouth, Daily, # 10 tablet, Refills 0, Tot. Refills 0, Maintenance, 04/08/22 9:49:00 EDT, Route to Pharmacy Electronically, [facility]/pharmacy #[id number], Partial fill upon patient request if the prescription is for a schedule II opioid drug.... Start Date: 04/08/22 Stop Date: 04/18/22 Status: Ordered Symbicort 80mcg/4.5mcg Inhaler 2, puffs, Inhalation, 2 times a day, # 1 each, Refills 1, Tot. Refills 1, Maintenance, 05/07/22 9:12:00 EDT, [place], Route to Pharmacy Electronically, [id number], [facility]/pharmacy #[id number], 163, cm, 04/08/22 9:49:00 EDT, [...] List Condition Confirmation Course Effective Dates Status [facility] atus Informant Uterus, bicornuate Confirmed Active [...] Associate Professional Member Role: PCP Address: Address: [address] [place] [address]- Care Team Related Persons Name: YANELI PEÑALOZA Address: [place] [address] Name: FENG PEÑALOZA Name: SEEMA ESPINOZA Address: home [address] [place] [address] Name: KALI BIGGS Address: [place] [address]
--- OUTSIDE RECORDS SUMMARY | 2023-04-05 02:31 | XMS_ITS | Continuity of Care Document ---
Author Name Unknown Organization [facility] Address Unknown Care Team Providers Care Junior Business Analyst Name Role Phone Donald NICK, Katia Pinon Primary Care Physician [place] [facility] [place](s): 06/10/21 - 07/10/21 [facility] Allergies, Adverse Reactions, Alerts Substance Reaction Severity [...] Gm, 0 Refills, Maintenance, 12/25/20 15:01:00 EST, [place], [id number], Partial fill upon patient request if the prescription is for a schedule II opioid drug., 1 sprays Nares, Both 2 times a day, 163,... Start Date: 12/25/20 Status: Ordered naproxen 500 mg oral tablet 1 tablet = 500 mg, By Mouth, 2 times a day, PRN for headache, with food., # 30 tablet, 1 Refills, Maintenance, 06/18/21 8:29:00 EDT, Tablet, [facility]/pharmacy #[id number], Partial fill upon patient request if the prescription is for a schedule II opioid drug., 1... Start Date: 06/18/21 Status: Ordered ohm Allergy Relief 10 mg oral tablet 1 tablet, By Mouth, Daily, # 30 tablet, 0 Refills, Maintenance, 01/18/21 15:54:00 EST, [facility], 163, cm, 12/25/20 11:18:00 EST, Height, 72.9, kg, 05/17/20 16:57:00 EDT, Dry Weight Start Date: 01/18/21 Status: Ordered Symbicort 80mcg/4.5mcg Inhaler 2, puffs, Inhalation, 2 times a day, # 1 each, Refills 11, Tot. Refills 11, Maintenance, 04/11/21 14:21:00 EDT, Aeros[place], Route to Pharmacy Electronically, [id number], [facility]/pharmacy #[id number], 163, cm, 04/11/21 [...]
--- OUTSIDE RECORDS SUMMARY | 2023-04-05 02:31 | XMS_ITS | Continuity of Care Document ---
Author Name Unknown Organization [facility] Address [address] [place] [address]- Care Team Providers Care Genetic Physician Name Role Phone Donald NICK, Katia Pinon Primary Care Physician [facility]counter [facility] Date(s): 11/02/20 - 12/02/20 [facility] [address] [place], [place] [address] Allergies, Adverse Reactions, Alerts Substance Reaction Severity [...]
--- OUTSIDE RECORDS SUMMARY | 2023-04-05 02:31 | XMS_ITS | Continuity of Care Document ---
Author Name Unknown Organization [facility] Address [address] [place] [address]- Care Team Providers Care Toll Patrolman Name Role Phone Wicho Still NP Primary Care Physician [phone] [place] [facility] [place](s[place] 03/05/23 - 03/12/23 [facility] [address] [place] [address]- Attending Physician: Paulino Alfredo MD Admitting Physician: Paulino Alfredo MD Referring Physician: Vicky Hawthorne DO Allergies, Adverse Reactions, [...] Dry Weight Start Date: 04/17/21 Status: Ordered cetirizine 10 mg oral tablet 1 tablet, By Mouth, Daily, # 30 tablet, 11 Refills, Maintenance, 03/01/23 16:03:00 EDT, [facility], 163, cm, 02/13/23 8:19:00 EDT, Height, 79.9, kg, 10/20/22 13:53:00 EST, Dry Weight Start Date: 03/01/23 Status: Ordered fluticasone 50 mcg/inh nasal spray See Instructions, USE 1 SPRAY IN EACH NOSTRIL TWICE A DAY, # 16 mL, 11 Refills, Maintenance, 03/01/23 16:03:00 EDT, [facility], 30, USE 1 SPRAY IN EACH NOSTRIL TWICE A DAY, 163, cm, 02/13/23 8:19:00 EDT, Height, 79.9, kg, 10/20/22 13:53:00 EST, D... Start Date: 03/01/23 Status: Ordered melatonin 1 mg oral tablet 1 tablet = 1 mg, By Mouth, Daily at bedtime, PRN for insomnia, for 90 days, # 90 tablet, 1 Refills,Acute 08/05/23 14:55:00 EDT, 02/06/23 14:55:00 EDT, Tablet, [facility]/pharmacy #[id number], Partial fill upon patient request if the prescription is for a schedule... Start Date: 02/06/23 Stop Date: 08/05/23 Status: Ordered melatonin 5 mg oral tablet See Instructions, PRN for insomnia, 1-2 tablets By Mouth Daily at bedtime 30 days, # 120 tablet, 1 Refills, Acute 10/14/23 15:00:00 EST, 10/13/22 14:59:00 EST, Tablet, [facility]/pharmacy #[id number], Partial fill upon patient request if the prescription is for a... Start Date: 10/13/22 Stop Date: 10/14/23 Status: Ordered Plan B One-Step 1.5 mg oral tablet 1.5 mg, 1, tablet, By Mouth, Once, # 1 tablet, Refills 4, Tot. Refills 4, Soft Stop, 01/22/23 9:40:00 EST, Route to Pharmacy Electronically, [facility]/pharmacy #[id number], Partial fill upon patient request if the prescription is for a schedule II opioid drug., 1... Start Date: 01/22/23 Status: Ordered Symbicort 80mcg/4.5mcg Inhaler 2, puffs, Inhalation, 2 times a day, # 1 each, Refills 1, Tot. Refills 1, Maintenance, 05/07/22 9:12:00 EDT, Aeros[place], Route to Pharmacy Electronically, [id number], [facility]/pharmacy #[id number], 163, cm, 04/08/22 9:49:00 EDT, Height, 72... Start Date: 05/07/22 Status: Ordered Problem List Condition Confirmation Course [...] of calculus. No hydronephrosis... Absent LEFT kidney. Vital Signs Most recent to oldest [Reference Range]: 1 Height 163 cm (03/05/23 8:14 AM) Weight 77.0 kg (03/05/23 8:14 AM) Pulse Rate [55-90 bpm] 72 bpm (03/05/23 8:14 AM) Body Mass Index [18.5-24.99 kg/m2] 28.98 kg/m2 *H* (03/05/23 8:14 AM) Blood Pressure [90-138/55-84 mm Hg] 112/ 74mm Hg (03/05/23 8:14 AM) Blood pressure sites Arm, right (03/05/23 8:14 AM) Weight Obtained Via Patient/family state d (03/05/23 8:14 AM) Social History Social History Type Response Smoking Status Never (less than 100 in lifetime) entered on: 02/06/23 Sex Note * Gabriella Awan: PERFORM, SIGN, VERIFY Event Display: Patient Education/Instruction Authored Date: [id number] [facility] *[facility] [address] Clinical Summary Name IRMA HUANG Age 47 Years 1975 PCP Wicho Still NP PCP Visit Date 03/05/2023 07:57:00 Additional Instructions: Scheduled Appointments?? Future Appointments ?[facility]ag ?Phone:??--?Fax:??-- ?Appt. Date:??04/10/2023?1:30 PM ?Scheduled Provider:??Echo [facility] ?*[facility] ?[address]??[place],??[place],??[address] ?Phone:??--?Fax:??-- ?Appt. Date:??05/01/2023?2:00 PM ?Scheduled Provider:??Wicho Still NP Follow-Up Instructions ?? Diagnosis Bicornate uterus; Excessive and frequent menstruation with regular cycle Medications: Please continue your medications until treatment is completed or stopped by your provider. Discuss any questions related to medications with your provider. Medications to Continue with No Changes These medications were not printed or sent to your pharmacy Budesonide-Formoterol (Symbicort 80mcg/4.5mcg Inhaler) 2 puff(s) Inhalation twice a day. Refills: 1. Next Dose: Cetirizine (cetirizine 10 mg oral tablet) 1 tab(s) Oral Daily. Refills: 11. Next Dose: Durable Medical Equipment (Aerochamber) To be used with MDI as directed. Refills: 0. Next Dose: Fluticasone Nasal (fluticasone 50 mcg/inh nasal spray) USE 1 SPRAY IN EACH NOSTRIL TWICE A DAY. Refills: 11. Next Dose: Levonorgestrel (Plan B One-Step 1.5 mg oral tablet) 1 tab(s) Oral once. Refills: 4. Next Dose: Melatonin (melatonin 1 mg oral tablet) 1 tab(s) Oral Daily at Bedtime as needed for insomnia for 90Days. Refills: 1. Next Dose: Melatonin (melatonin 5 mg oral tablet) 1-2 tablets By Mouth Daily at bedtime 30 days; as needed forinsomnia. Refills: 1. Next Dose: Allergy Info:?? Latex Medications Given This Visit Future Orders ?No future orders Vital Signs Height 163 cm Weight 77.0 kg BMI 28.98 kg/m2 Blood Pressure 112 mm Hg/74 mm Hg Temperature Pulse Rate 72 bpm Respiratory Rate 02 Sat Mode of Delivery / You can now view a summary of your hospital visit from the comfort of your home through a free online portal called [employer]. [employer] is a website that allows you to securely view your medical information including discharge summary, medications and follow-up visits. ??You can alsosend a secure electronic message to your doctor???s office to request appointments, renew medications or just ask a question. You can enroll at [email or web address] or register during your next office visit. Disclaimer:?? The information provided is of a general nature and is intended to be used in conjunction with the recommendations and advice of your health care practitioner. ??Every effort has been made to ensure that the information provided is accurate and complete at the time it is provided to you however, as your needs change, or, as new ??information becomes available, different or additional instructions may be required. If you have questions, please consult with your primary care provider or pharmacist, as appropriate. ??This information is not intended to serve as substitution for assessment and evaluation by a qualified health care provider. If you do not have a primary care provider, you may find a [facility] provider by calling [facility] at [phone]. For information about the plan of care including goals and instructions for your diagnosis, please see the patient education orders section of this document. Patient Education Materials?? The content of this educational material or handout may have been modified, supplemented, or adapted from its original content and format to support your individualized medical care. Patient Care team information Care Team Personnel Name: Wicho Still NP Position: [facility] PCO Associate Professional Member Role: PCP Address: Address: [address] [place] [address]- Care Team Related Persons Name: YANELI PEÑALOZA Address: [place], [place] Name: FENG PEÑALOZA Name: SEEMA ESPINOZA Address: home [address] [place] [address] Name: KALI BIGGS Address: home [facility] [place] [address]
--- OUTSIDE RECORDS SUMMARY | 2023-04-05 02:31 | XMS_ITS | Continuity of Care Document ---
Author Name Unknown Organization [facility] Address [address] [place] [address]- Care Team Providers Care Heavy Truck Technician Name Role Phone Donald NICK, Katia Pinon Primary Care Physician ( [phone] Encounter [facility] Date(s): 04/17/21 - 05/17/21 [facility] [address] [place] [address]- Allergies, Adverse Reactions, Alerts Substance Reaction Severity [...] tablet, 1 Refills, Maintenance, 05/17/21 10:25:00 EDT, [facility]/pharmacy #[id number], Partial fill upon patient request if the prescription is for a schedule II opioid drug., 163, cm, 05/17/21 10:00:00 EDT, Height, 72.9,... Start Date: 05/17/21 Status: Ordered Flonase 50 mcg/inh nasal spray 1 sprays, Nares, Both, 2 times a day, # 16 Gm, 0 Refills, Maintenance, 12/25/20 15:01:00 EST, [place], [facility]/pharmacy #[id number], Partial fill upon patient request if the prescription is for a schedule II opioid drug., 1 sprays Nares, Both 2 times a day, 163,... Start Date: 12/25/20 Status: Ordered ohm Allergy Relief 10 mg oral tablet 1 tablet, By Mouth, Daily, # 30 tablet, 0 Refills, Maintenance, 01/18/21 15:54:00 EST, [facility] STORE [id number], 163, cm, 12/25/20 11:18:00 EST, Height, 72.9, kg, 05/17/20 16:57:00 EDT, Dry Weight Start Date: 01/18/21 Status: Ordered SUMAtriptan 50 mg oral tablet 1 tablet = 50 mg, By Mouth, Daily, PRN for migraine headache, for 30 days, may repeat dose after 2 hours up to a maximum of 2, # 9 tablet, 0 Refills, Acute 06/12/21 17:49:00 EDT, 05/13/21 17:49:00 EDT, Tablet, [facility]/pharmacy #[id number], Partial fill upon pat... Start Date: 05/13/21 Stop Date: 06/12/21 Status: Ordered Symbicort 80mcg/4.5mcg Inhaler 2, puffs, Inhalation, 2 times a day, # 1 each, Refills 11, Tot. Refills 11, Maintenance, 04/11/21 14:21:00 EDT, Aerosol, Route to Pharmacy Electronically, [id number], [facility]/pharmacy #[id number], 163, cm, 04/11/21 13:52:00 EDT, [...]
--- OUTSIDE RECORDS SUMMARY | 2023-04-05 02:31 | XMS_ITS | Continuity of Care Document ---
Author Name Unknown Organization [facility] Address [address] [place] [address]- Care Team Providers Care Pin Drafter Name Role Phone Donald NICK, Katia Pinon Primary Care Physician Encounter [facility] Date(s): 05/01/21 - 05/31/21 [facility] [address] [place] [address]- Allergies, Adverse Reactions, Alerts Substance Reaction Severity [...] tablet, 1 Refills, Maintenance, 05/17/21 10:25:00 EDT, [facility]/pharmacy #[id number], Partial fill upon patient request if the prescription is for a schedule II opioid drug., 163, cm, 05/17/21 10:00:00 EDT, Height, 72.9,... Start Date: 05/17/21 Status: Ordered Flonase 50 mcg/inh nasal spray 1 sprays, Nares, Both, 2 times a day, # 16 Gm, 0 Refills, Maintenance, 12/25/20 15:01:00 EST, [place], [facility]/pharmacy #[id number], Partial fill upon patient request if the prescription is for a schedule II opioid drug., 1 sprays Nares, Both 2 times a day, 163,... Start Date: 12/25/20 Status: Ordered ohm Allergy Relief 10 mg oral tablet 1 tablet, By Mouth, Daily, # 30 tablet, 0 Refills, Maintenance, 01/18/21 15:54:00 EST, [facility] STORE [facility]63, 163, cm, 12/25/20 11:18:00 EST, Height, 72.9, kg, 05/17/20 16:57:00 EDT, Dry Weight Start Date: 01/18/21 Status: Ordered Symbicort 80mcg/4.5mcg Inhaler 2, puffs, Inhalation, 2 times a day, # 1 each, Refills 11, Tot. Refills 11, Maintenance, 04/11/21 14:21:00 EDT, Aerosol, Route to Pharmacy Electronically, [id number], [facility]/pharmacy #[id number], 163, cm, 04/11/21 13:52:00 EDT, Height... [...]
--- OUTSIDE RECORDS SUMMARY | 2023-04-05 02:31 | XMS_ITS | Continuity of Care Document ---
Author Name Unknown Organization [facility] Address [address] [place] [address]- Care Team Providers Care Rv Technician Name Role Phone Wicho Still NP Primary Care Physician [place] [facility] [place] 11[place]13/22 - 12/13/22 [facility] [address]- [place] Allergies, Adverse Reactions, Alerts Substance Reaction [...] Gm, 0 Refills, Maintenance, 12/25/20 15:01:00 EST, [place], [facility]/pharmacy #[id number], Partial fill upon patient request if [...] EST, 10/13/22 14:59:00 EST, Tablet, [facility]/pharmacy #[id number], Partial fill upon patient request if the prescription is for a... Start Date: 10/13/22 Stop Date: 10/14/23 Status: Ordered miSOPROStol 200 mcg oral tablet 4 tablet = 800 mcg, By Mouth, Once, bolivar 4 tabletas buccal en 24 horas. puede repetir 24-48 horas despues si necesita., # 8 tablet, 0 Refills, Soft Stop, 10/20/22 14:35:00 EST, [facility]/pharmacy #[id number], 163, cm, 10/20/22 13:53:00 EST, Height, 79.9, kg, ... Start Date: 10/20/22 Status: Ordered ohm Allergy Relief 10 mg oral tablet 1 tablet, By Mouth, Daily, # 30 tablet, 0 Refills, Maintenance, 01/18/21 15:54:00 EST, [facility] STORE [address]38, 163, cm, 12/25/20 11:18:00 EST, Height, 72.9, kg, 05/17/20 16:57:00 EDT, Dry Weight Start Date: 01/18/21 Status: Ordered Provera 10 mg oral tablet 10 mg, 1, tablet, By Mouth, Daily, # 10 tablet, Refills 0, Tot. Refills 0, Maintenance, 04/08/22 9:49:00 EDT, Route to Pharmacy Electronically, [facility]/pharmacy #[id number], Partial fill upon patient request if the prescription is for a schedule II opioid drug.... Start Date: 04/08/22 Stop Date: 04/18/22 Status: Ordered Symbicort 80mcg/4.5mcg Inhaler 2, puffs, Inhalation, 2 times a day, # 1 each, Refills 1, Tot. Refills 1, Maintenance, 05/07/22 9:12:00 EDT, Aerosol, Route to Pharmacy Electronically, [id number], [facility]/pharmacy #[id number], 163, cm, 04/08/22 9:49:00 EDT, Height, 72... Start Date: 05/07/22 Status: Ordered ZyrTEC 10 mg oral tablet 1 tablet = 10 mg, By Mouth, Daily, # 30 tablet, 0 Refills, Maintenance, 03/21/22 10:36:00 EDT, Tablet, [facility]/pharmacy #[id number], Partial fill upon patient request if [...] Team Personnel Name: Wicho Still NP Position: [facility] Associate Professional Member Role: PCP Address: Address: [address] [place] [address]- Care Team Related Persons Name: YANELI PEÑALOZA Address: [place] [address] Name: FENG PEÑALOZA Name: SEEMA ESPINOZA Address: home [address] [place] [id number] Name: KALI BIGGS Address: [place] [address]
--- OUTSIDE RECORDS SUMMARY | 2023-04-05 02:31 | XMS_ITS | Continuity of Care Document ---
Author Name Unknown Organization [facility] Address [address] [place] [address]- Care Team Providers Care Fine Arts Teacher Name Role Phone Donald NICK, Katia Pinon Primary Care Physician Encounter [facility] Date(s): 10/09/20 - 12/02/20 [facility] [address] [place], [place] [address] Attending Physician: Amy Zhao MD Admitting Physician: Amy Zhao MD Allergies, Adverse Reactions, Alerts Substance Reaction [...]
--- OUTSIDE RECORDS SUMMARY | 2023-04-05 02:31 | XMS_ITS | Continuity of Care Document ---
Author Name Unknown Organization [facility] Address Unknown Care Team Providers Care Fishing Accessories Maker Name Role Phone Luna BOBO, Alea Alamo Primary Care Physici an Encounter [facility] [id number] Date(s): 04/08/22 - 05/08/22 [facility] Attending Physician: Daniela Stringer [...] Gm, 0 Refills, Maintenance, 12/25/20 15:01:00 EST, [place], [facility]/pharmacy #[id number], Partial fill upon patient request if the prescription is for a schedule II opioid drug., 1 sprays Nares, Both 2 times a day, 163,... Start Date: 12/25/20 Status: Ordered naproxen 500 mg oral tablet 1 tablet = 500 mg, By Mouth, 2 times a day, PRN for headache, with food., # 30 tablet, 1 Refills, Maintenance, 06/18/21 8:29:00 EDT, Tablet, [facility]/pharmacy #[id number], Partial fill upon patient request if the prescription is for a schedule II opioid drug., 1... Start Date: 06/18/21 Status: Ordered ohm Allergy Relief 10 mg oral tablet 1 tablet, By Mouth, Daily, # 30 tablet, 0 Refills, Maintenance, 01/18/21 15:54:00 EST, [facility] STORE [id number], 163, cm, 12/25/20 11:18:00 EST, Height, 72.9, kg, 05/17/20 16:57:00 EDT, Dry Weight Start Date: 01/18/21 Status: Ordered Provera 10 mg oral tablet 10 mg, 1, tablet, By Mouth, Daily, # 10 tablet, Refills 0, Tot. Refills 0, Maintenance, 04/08/22 9:49:00 EDT, Route to Pharmacy Electronically, [facility]/pharmacy #[id number], Partial fill upon patient request if the prescription is for a schedule II opioid drug.... Start Date: 04/08/22 Stop Date: 04/18/22 Status: Ordered Symbicort 80mcg/4.5mcg Inhaler 2, puffs, Inhalation, 2 times a day, # 1 each, Refills 1, Tot. Refills 1, Maintenance, 05/07/22 9:12:00 EDT, Aerosol, Route to Pharmacy Electronically, [id number], [facility]/pharmacy #[id number], 163, cm, 04/08/22 9:49:00 [...]
--- OUTSIDE RECORDS SUMMARY | 2023-04-05 02:31 | XMS_ITS | Continuity of Care Document ---
Author Name Unknown Organization [facility] Address [address] [place] [address]- Care Team Providers Care Miller Helper Name Role Phone Donald NICK, Katia Pinon Primary Care Physician Encounter [facility] Date(s): 10/11/20 - 11/10/20 [facility] [address] [place], [place] [address] Allergies, Adverse Reactions, Alerts Substance [...]
--- OUTSIDE RECORDS SUMMARY | 2023-04-05 02:31 | XMS_ITS | Continuity of Care Document ---
Author Name Unknown Organization [facility] Address [address] [place] [address]- Care Team Providers Care Mobile Development Manager Name Role Phone Katia Bennett MD Primary Care Physician Encounter [facility] Date(s): 01/01/21 - 06/07/[address] [address] Attending Physician: Jeff Ordonez MD, I Admitting Physician: Jeff Ordonez MD, I Referring Physician: Jeff Ordonez MD, I Allergies, Adverse Reactions, Alerts Substance Reaction Severity [...] tablet, 1 Refills, Maintenance, 05/17/21 10:25:00 EDT, [facility]/pharmacy #[id number], Partial fill upon patient request if the prescription is for a schedule II opioid drug., 163, cm, 05/17/21 10:00:00 EDT, Height, 72.9,... Start Date: 05/17/21 Status: Ordered Flonase 50 mcg/inh nasal spray 1 sprays, Nares, Both, 2 times a day, # 16 Gm, 0 Refills, Maintenance, 12/25/20 15:01:00 EST, [place], [facility]/pharmacy #[id number], Partial fill upon patient request if the prescription is for a schedule II opioid drug., 1 sprays Nares, Both 2 times a day, 163,... Start Date: 12/25/20 Status: Ordered ohm Allergy Relief 10 mg oral tablet 1 tablet, By Mouth, Daily, # 30 tablet, 0 Refills, Maintenance, 01/18/21 15:54:00 EST, [facility] ST[facility] [id number], 163, cm, 12/25/20 11:18:00 EST, Height, 72.9, kg, 05/17/20 16:57:00 EDT, Dry Weight Start Date: 01/18/21 Status: Ordered SUMAtriptan 50 mg oral tablet See Instructions, PLEASE SEE ATTACHED FOR DETAILED DIRECTIONS, # 9 tablet, 0 Refills, Soft Stop, [id number], 163, cm, 05/17/21 10:00:00 EDT, Height, 72.9, kg, 05/17/20 16:57:00 EDT, Dry Weight Start Date: 06/07/21 Status: Ordered Symbicort 80mcg/4.5mcg Inhaler 2, puffs, Inhalation, 2 times a day, # 1 each, Refills 11, Tot. Refills 11, Maintenance, 04/11/21 14:21:00 EDT, Aerosol, Route to Pharmacy Electronically, [id number], [facility]/pharmacy #[id number], 163, [...]
--- NOTE | 2023-04-05 03:55 | PC.NURSE ---
aox4 pt resting quietly with friend at bedside no apparent distress
[2023-04-05 04:00] VITALS: BP 130/86; PULSE 82; RESP 16; TEMP 36.7; O2SAT 100
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
--- NOTE | 2023-04-05 05:11 | PC.NURSE ---
Discharge instructions given and explained to patient Ambulates safely and independently No apparent distress A&Ox4 All of patient's questions answered
[2023-04-05] MEDS: Bacitracin Oint 0.9 GM PACKET 1 APPL TOPICAL (05:12)
== END 2023-04-05 05:11 | disposition home or self-care (01) ==
PROVIDERS: Emergency Provider Emergency Medicine Emergency Medical Services
DX: S01.81XA Laceration without foreign body of other part of head, initial encounter (principal); S00.81XA Abrasion of other part of head, initial encounter; W25.XXXA Contact with sharp glass, initial encounter; Y93.9 Activity, unspecified; Y92.9 Unspecified place or not applicable; Y99.9 Unspecified external cause status
CPT/HCPCS: 12052; 90471; 90715; 99284

== ENCOUNTER 2023-04-10 14:22 | Emergency (ER) | payer OTHER, SELFPAY ==
[2023-04-10 14:28] VITALS: BP 153/76; PULSE 62; RESP 16; TEMP 36.6; O2SAT 98; BMI 29.2
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
== END 2023-04-10 14:40 | disposition home or self-care (01) ==
PROVIDERS: Emergency Provider Emergency Medicine Emergency Medical Services
DX: Z48.02 Encounter for removal of sutures (principal)
CPT/HCPCS: 99281; 99282